=== PATIENT | male | born 1970 | race Two or more races ===

== ENCOUNTER 2019-10-04 04:19 | Inpatient (IN) ==
--- NOTE | 2019-10-04 04:42 | Emergency Department Note ---
History of Present Illness General Chief complaint: Chest Pain Stated complaint: CHEST PAIN History of Present Illness Maximum Pain Intensity: 7 This 49-year-old presents to the ER complaining of chest pain Location: Chest Quality: Pressure Severity: Moderate Duration: 3 AM Timing: Started 3 AM Context: Patient was concerned and called EMS Modifying factors: better with nitroglycerin; worse with nothing Patient does smoke and has high blood pressure. 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 He lives in [place]. Patient denies fever, chills, abdominal pain, dyspnea, radiating pain, diaphoresis, nausea. No leg pain or swelling. No prior heart testing. He is originally from [place]. Allergies Allergy/AdvReac Type Severity Reaction Status Date / Time No Known Allergies Allergy Unverified 10/04/19 06:15 Past Med/Surg History Medical History High blood pressure Surgical History History of weight loss surgery Hx of cholecystectomy Social History Smoking Status: Current every day smoker Hx Alcohol Use: Yes Hx Substance Use: No Communication Ability: Effective Beliefs That Will Affect Care: None Current Living Situation: Alone Feels Safe at Home: Yes Safety Concerns: Feels Safe At This Time Review of Systems A total of 10 systems reviewed and were otherwise negative Physical Exam Vital Signs Vital Signs - 24 hr 10/04/19 04:29 10/04/19 04:35 10/04/19 05:10 Temperature 36.8 C Temperature Source Oral Pulse Rate 72 Pulse Rate [Apical] 70 Pulse Rate from SpO2 Sensor Respiratory Rate 18 18 Blood Pressure 124/95 Blood Pressure [Right Arm] 122/94 Blood Pressure Mean 104 Blood Pressure Mean [Right Arm] 103 Pulse Oximetry 95 96 93 Oxygen Delivery Method Room Air Room Air Room Air Sepsis Recent Fever Within 48 Hours No Sepsis New/Unexplained Change in Mental Status No Sepsis Action Taken by Nursing No Action Required 10/04/19 05:20 Temperature Temperature Source Pulse Rate 70 Pulse Rate [Apical] Pulse Rate from SpO2 Sensor 70 Respiratory Rate 14 Blood Pressure 122/104 H Blood Pressure [Right Arm] Blood Pressure Mean 111 Blood Pressure Mean [Right Arm] Pulse Oximetry 96 Oxygen Delivery Method Sepsis Recent Fever Within 48 Hours Sepsis New/Unexplained Change in Mental Status Sepsis Action Taken by Nursing VITALS: Vitals are noted on the nurse's note and reviewed by myself. Vital signs stable. GENERAL: Pleasant male, in no acute distress, nondiaphoretic, well-developed well-nourished. SKIN: Capillary reflex less than 2 seconds. HEENT: Normocephalic. PERRLA. EOMI. Nares patent. Mucous membranes moist. Neck is supple without nuchal rigidity. HEART: Regular rate and rhythm LUNGS: Clear to auscultation bilaterally without wheezes, rales or rhonchi. No retractions or accessory muscle use. ABDOMEN: Positive bowel sounds x 4. Normal tympanic percussion. Soft, nontender, without masses or organomegaly. Perdomo sign negative. No guarding or rebound tenderness. MUSCULOSKELETAL: No gross musculoskeletal defects. NEURO: Patient was alert and oriented to person place and time. No focal neurological deficits. Course Administered Medications Aspirin (Ecotrin Ectab) 81 mg PO QAM [facility] Stop: 11/03/19 08:59 Last Admin: 10/04/19 08:22 Dose: 81 mg Documented by: [id number] Atorvastatin Calcium (Lipitor) 40 mg PO QAM [facility] Stop: 11/03/19 08:59 Last Admin: 10/04/19 08:22 Dose: 40 mg Documented by: [id number] Fentanyl Citrate (Fentanyl Citrate) 50 mcg IV Q15M PRN PRN Reason: Pain Stop: 10/18/19 04:59 Last Admin: 10/04/19 05:06 Dose: 50 mcg Documented by: [id number] Parenteral Electrolytes (Normosol-R) 1,000 mls @ 120 mls/hr IV .Q8H20M [facility] Stop: 11/03/19 06:27 Last Admin: 10/04/19 16:43 Dose: 120 mls/hr Documented by: [id number] Infusion: 10/04/19 15:39 Dose: 120 mls/hr Documented by: [id number] Admin: 10/04/19 07:19 Dose: 120 mls/hr Documented by: [id number] Insulin Aspart (Novolog Flexpen) 0 units SC ACHS [facility] Stop: 11/03/19 12:29 Last Admin: 10/04/19 20:43 Dose: Not Given Documented by: [id number] Cosigned by: [id number] Admin: 10/04/19 16:51 Dose: Not Given Documented by: [id number] Admin: 10/04/19 13:43 Dose: Not Given Documented by: [id number] Lisinopril (Zestril) 5 mg PO QAM [facility] Stop: 11/03/19 08:59 Last Admin: 10/04/19 08:22 Dose: 5 mg Documented by: [id number] Metoprolol Tartrate (Lopressor) 25 mg PO BID [facility] Stop: 11/03/19 08:59 Last Admin: 10/04/19 20:43 Dose: 25 mg Documented by: [id number] Admin: 10/04/19 08:22 Dose: 25 mg Documented by: [id number] Ticagrelor (Brilinta) 90 mg PO BID [facility] Stop: 11/03/19 20:59 Last Admin: 10/04/19 20:43 Dose: 90 mg Documented by: [id number] Discontinued Medications Bivalirudin (Angiomax ([facility] [employer] Only)) Confirm Administered Dose 250 mg .ROUTE .STK-MED ONE Stop: 10/04/19 05:12 Last Admin: 10/04/19 06:15 Dose: 250 mg Documented by: [id number] Heparin Sodium (Porcine) (Heparin Iv Bolus ([employer] [employer] Use Only)) Confirm Administered Dose 10,000 units .ROUTE .STK-MED ONE Stop: 10/04/19 05:11 Last Admin: 10/04/19 06:15 Dose: Not Given Documented by: [id number] Heparin Sodium (Porcine) (Heparin Sodium (Porcine)) Confirm Administered Dose 5,000 units .ROUTE .STK-MED ONE Stop: 10/04/19 05:24 Last Admin: 10/04/19 05:24 Dose: 5,000 units Documented by: [id number] Cosigned by: [id number] Heparin Sodium/Dextrose () 1 ea IV NOW STA; Protocol Stop: 10/04/19 05:14 Last Admin: 10/04/19 07:21 Dose: Not Given Documented by: [id number] Heparin Sodium/Sodium Chloride (Heparin/Nss 1000 Unit/500ml Flush Bag) Confirm Administered Dose 3,000 units IV .STK-MED ONE Stop: 10/04/19 05:12 Last Admin: 10/04/19 06:15 Dose: 3,000 units Documented by: [id number] Heparin Sodium/Dextrose (Heparin Sodium/Dextrose) 25,000 units in 500 mls @ 0.02 mls/hr IV .Q24H SABI; Protocol Stop: 11/03/19 05:14 Last Admin: 10/04/19 07:21 Dose: Not Given Documented by: [id number] Midazolam HCl (Versed) Confirm Administered Dose 2 mg .ROUTE .STK-MED ONE Stop: 10/04/19 05:12 Last Increment: 10/04/19 06:16 Dose: 1 mg Documented by: [id number] Nicardipine HCl (Cardene) Confirm Administered Dose 25 mg .ROUTE .STK-MED ONE Stop: 10/04/19 05:11 Last Admin: 10/04/19 06:15 Dose: 25 mg Documented by: [id number] Nitroglycerin/Dextrose (Nitroglycerin/D5w 100 Mcg/Ml 20ml Syringe) Confirm Administered Dose 2,000 mcg .ROUTE .STK-MED ONE Stop: 10/04/19 05:12 Last Admin: 10/04/19 06:16 Dose: 2,000 mcg Documented by: [id number] Perflutren Lipid Microsphere (Definity) 1 ml IV ONCE ONE Stop: 10/04/19 08:05 Last Admin: 10/04/19 08:10 Dose: 1 ml Documented by: [id number] Ticagrelor (Brilinta) 180 mg PO ONE ONE Stop: 10/04/19 05:14 Last Admin: 10/04/19 05:24 Dose: 180 mg Documented by: [id number] Medical Decision Making Medical Records Attestation: I reviewed the patient's medical records. Home Medications Current Medication List: was personally reviewed by me Laboratory Data Attestation: I reviewed the patient's lab results. Result diagrams: 10/04/19 04:41 10/04/19 05:18 Lab Results 10/04/19 10/04/19 10/04/19 Range/Units 04:41 04:41 04:41 WBC 9.23 (4.8-10.8) K/uL RBC 5.07 (4.7-6.1) M/uL Hgb 15.5 (14.0-18.0) g/dL POC Hgb (14.0-18.0) g/dl Hct 45.1 (42-52) % POC Hct (42-52) % MCV 89.0 (80-100) fL MCH 30.6 (25-34) pg MCHC 34.4 (32-36) g/dL RDW Std Deviation 42.4 (36.4-46.3) fL RDW Coeff of Abbey 13.1 (11.5-14.5) % Plt Count 218 (130-400) K/uL MPV 10.5 H (7.4-10.4) fL Immature Gran % (Auto) 0.3 % Neut % (Auto) 59.3 % Lymph % (Auto) 30.7 % [place] % (Auto) 8.0 % Eos % (Auto) 1.5 % Baso % (Auto) 0.2 % Neut # (Auto) 5.47 (1.4-6.5) K/uL Lymph # (Auto) 2.83 (1.2-3.4) K/uL [place] # (Auto) 0.74 H (0.11-0.59) K/uL Eos # (Auto) 0.14 (0-0.5) K/uL Baso # (Auto) 0.02 (0-0.2) K/uL Immature Gran # (Auto) 0.03 H (0.00-0.02) K/uL PT Cancelled INR Cancelled APTT Cancelled PTT Ratio Cancelled Activ Coag Time Kaolin (94-140) SECONDS POC D-Dimer (0-450) ng/mlFEU POC Sodium (135-144) mmol/L Sodium 139 (136-145) mmol/L POC Potassium (3.3-5.0) mmol/L Potassium (3.5-5.1) mmol/L POC Chloride (101-112) mmol/L Chloride 110 H (98-107) mmol/L Carbon Dioxide 22 (21-32) mmol/L POC Total CO2 (24-31) mmol/L Anion Gap 7.0 (3-11) POC Anion Gap (16-25) mmol/L POC BUN (7-18) mg/dl BUN 17 (7-18) mg/dl Creatinine 1.16 (0.6-1.4) mg/dl POC Creatinine (0.6-1.3) mg/dl Est Cr Clr Drug Dosing 88.4 ml/min Est GFR ( Amer) 84.0 Est GFR (Non-Af Amer) 72.5 BUN/Creatinine Ratio 15.0 (10-20) Glucose 149 H (70-99) mg/dl POC Glucose (other) (70-99) mg/dl Calcium 8.6 (8.5-10.1) mg/dl POC Ioniz Calcium Radha (1.12-1.32) mmol/l Magnesium (1.8-2.4) mg/dl Total Bilirubin 0.3 (0.2-1) mg/dl AST (15-37) U/L ALT 160 H (12-78) U/L Alkaline Phosphatase 99 (45-117) U/L POC Troponin I (0-0.045) ng/ml Troponin I 0.106 H* (0-0.045) ng/ml Total Protein 7.4 (6.4-8.2) gm/dl Albumin 3.4 (3.4-5.0) gm/dl Globulin 4.0 (2.5-4.0) gm/dl Albumin/Globulin Ratio 0.9 (0.9-2) Triglycerides (0-150) mg/dl Cholesterol (0-200) mg/dl LDL Cholesterol, Calc mg/dl VLDL Cholesterol, Calc mg/dl HDL Cholesterol mg/dl Cholesterol/HDL Ratio Lipase 1777 H (73-393) U/L TSH (0.300-4.500) uIu/ml 10/04/19 10/04/19 10/04/19 Range/Units 04:47 04:48 04:55 WBC (4.8-10.8) K/uL RBC (4.7-6.1) M/uL Hgb (14.0-18.0) g/dL POC Hgb 15.6 (14.0-18.0) g/dl Hct (42-52) % POC Hct 46 (42-52) % MCV (80-100) fL MCH (25-34) pg MCHC (32-36) g/dL RDW Std Deviation (36.4-46.3) fL RDW Coeff of Abbey (11.5-14.5) % Plt Count (130-400) K/uL MPV (7.4-10.4) fL Immature Gran % (Auto) % Neut % (Auto) % Lymph % (Auto) % [place] % (Auto) % Eos % (Auto) % Baso % (Auto) % Neut # (Auto) (1.4-6.5) K/uL Lymph # (Auto) (1.2-3.4) K/uL [place] # (Auto) (0.11-0.59) K/uL Eos # (Auto) (0-0.5) K/uL Baso # (Auto) (0-0.2) K/uL Immature Gran # (Auto) (0.00-0.02) K/uL PT INR APTT PTT Ratio Activ Coag Time Kaolin (94-140) SECONDS POC D-Dimer > 450 H* (0-450) ng/mlFEU POC Sodium 137 (135-144) mmol/L Sodium (136-145) mmol/L POC Potassium 4.4 (3.3-5.0) mmol/L Potassium (3.5-5.1) mmol/L POC Chloride 104 (101-112) mmol/L Chloride (98-107) mmol/L Carbon Dioxide (21-32) mmol/L POC Total CO2 22 L (24-31) mmol/L Anion Gap (3-11) POC Anion Gap 17.0 (16-25) mmol/L POC BUN 23 H (7-18) mg/dl BUN (7-18) mg/dl Creatinine (0.6-1.4) mg/dl POC Creatinine 1.2 (0.6-1.3) mg/dl Est Cr Clr Drug Dosing ml/min Est GFR ( Amer) Est GFR (Non-Af Amer) BUN/Creatinine Ratio (10-20) Glucose (70-99) mg/dl POC Glucose (other) 151 H (70-99) mg/dl Calcium (8.5-10.1) mg/dl POC Ioniz Calcium Radha 1.16 (1.12-1.32) mmol/l Magnesium (1.8-2.4) mg/dl Total Bilirubin (0.2-1) mg/dl AST (15-37) U/L ALT (12-78) U/L Alkaline Phosphatase (45-117) U/L POC Troponin I 0.08 H (0-0.045) ng/ml Troponin I (0-0.045) ng/ml Total Protein (6.4-8.2) gm/dl Albumin (3.4-5.0) gm/dl Globulin (2.5-4.0) gm/dl Albumin/Globulin Ratio (0.9-2) Triglycerides (0-150) mg/dl Cholesterol (0-200) mg/dl LDL Cholesterol, Calc mg/dl VLDL Cholesterol, Calc mg/dl HDL Cholesterol mg/dl Cholesterol/HDL Ratio Lipase (73-393) U/L TSH (0.300-4.500) uIu/ml 10/04/19 10/04/19 10/04/19 Range/Units 05:18 05:18 05:18 WBC (4.8-10.8) K/uL RBC (4.7-6.1) M/uL Hgb (14.0-18.0) g/dL POC Hgb (14.0-18.0) g/dl Hct (42-52) % POC Hct (42-52) % MCV (80-100) fL MCH (25-34) pg MCHC (32-36) g/dL RDW Std Deviation (36.4-46.3) fL RDW Coeff of Abbey (11.5-14.5) % Plt Count (130-400) K/uL MPV (7.4-10.4) fL Immature Gran % (Auto) % Neut % (Auto) % Lymph % (Auto) % [place] % (Auto) % Eos % (Auto) % Baso % (Auto) % Neut # (Auto) (1.4-6.5) K/uL Lymph # (Auto) (1.2-3.4) K/uL [place] # (Auto) (0.11-0.59) K/uL Eos # (Auto) (0-0.5) K/uL Baso # (Auto) (0-0.2) K/uL Immature Gran # (Auto) (0.00-0.02) K/uL PT 10.5 INR 1.0 APTT 26.0 PTT Ratio 0.9 Activ Coag Time Kaolin (94-140) SECONDS POC D-Dimer (0-450) ng/mlFEU POC Sodium (135-144) mmol/L Sodium (136-145) mmol/L POC Potassium (3.3-5.0) mmol/L Potassium 4.0 (3.5-5.1) mmol/L POC Chloride (101-112) mmol/L Chloride (98-107) mmol/L Carbon Dioxide (21-32) mmol/L POC Total CO2 (24-31) mmol/L Anion Gap (3-11) POC Anion Gap (16-25) mmol/L POC BUN (7-18) mg/dl BUN (7-18) mg/dl Creatinine (0.6-1.4) mg/dl POC Creatinine (0.6-1.3) mg/dl Est Cr Clr Drug Dosing ml/min Est GFR ( Amer) Est GFR (Non-Af Amer) BUN/Creatinine Ratio (10-20) Glucose (70-99) mg/dl POC Glucose (other) (70-99) mg/dl Calcium (8.5-10.1) mg/dl POC Ioniz Calcium Radha (1.12-1.32) mmol/l Magnesium 1.9 (1.8-2.4) mg/dl Total Bilirubin (0.2-1) mg/dl AST 80 H (15-37) U/L ALT (12-78) U/L Alkaline Phosphatase (45-117) U/L POC Troponin I (0-0.045) ng/ml Troponin I (0-0.045) ng/ml Total Protein (6.4-8.2) gm/dl Albumin (3.4-5.0) gm/dl Globulin (2.5-4.0) gm/dl Albumin/Globulin Ratio (0.9-2) Triglycerides 142 (0-150) mg/dl Cholesterol 136 (0-200) mg/dl LDL Cholesterol, Calc 66 mg/dl VLDL Cholesterol, Calc 28 mg/dl HDL Cholesterol 42 mg/dl Cholesterol/HDL Ratio 3 Lipase (73-393) U/L TSH 0.640 (0.300-4.500) uIu/ml 10/04/19 Range/Units 06:05 WBC (4.8-10.8) K/uL RBC (4.7-6.1) M/uL Hgb (14.0-18.0) g/dL POC Hgb (14.0-18.0) g/dl Hct (42-52) % POC Hct (42-52) % MCV (80-100) fL MCH (25-34) pg MCHC (32-36) g/dL RDW Std Deviation (36.4-46.3) fL RDW Coeff of Abbey (11.5-14.5) % Plt Count (130-400) K/uL MPV (7.4-10.4) fL Immature Gran % (Auto) % Neut % (Auto) % Lymph % (Auto) % [place] % (Auto) % Eos % (Auto) % Baso % (Auto) % Neut # (Auto) (1.4-6.5) K/uL Lymph # (Auto) (1.2-3.4) K/uL [place] # (Auto) (0.11-0.59) K/uL Eos # (Auto) (0-0.5) K/uL Baso # (Auto) (0-0.2) K/uL Immature Gran # (Auto) (0.00-0.02) K/uL PT INR APTT PTT Ratio Activ Coag Time Kaolin 395 H (94-140) SECONDS POC D-Dimer (0-450) ng/mlFEU POC Sodium (135-144) mmol/L Sodium (136-145) mmol/L POC Potassium (3.3-5.0) mmol/L Potassium (3.5-5.1) mmol/L POC Chloride (101-112) mmol/L Chloride (98-107) mmol/L Carbon Dioxide (21-32) mmol/L POC Total CO2 (24-31) mmol/L Anion Gap (3-11) POC Anion Gap (16-25) mmol/L POC BUN (7-18) mg/dl BUN (7-18) mg/dl Creatinine (0.6-1.4) mg/dl POC Creatinine (0.6-1.3) mg/dl Est Cr Clr Drug Dosing ml/min Est GFR ( Amer) Est GFR (Non-Af Amer) BUN/Creatinine Ratio (10-20) Glucose (70-99) mg/dl POC Glucose (other) (70-99) mg/dl Calcium (8.5-10.1) mg/dl POC Ioniz Calcium Radha (1.12-1.32) mmol/l Magnesium (1.8-2.4) mg/dl Total Bilirubin (0.2-1) mg/dl AST (15-37) U/L ALT (12-78) U/L Alkaline Phosphatase (45-117) U/L POC Troponin I (0-0.045) ng/ml Troponin I (0-0.045) ng/ml Total Protein (6.4-8.2) gm/dl Albumin (3.4-5.0) gm/dl Globulin (2.5-4.0) gm/dl Albumin/Globulin Ratio (0.9-2) Triglycerides (0-150) mg/dl Cholesterol (0-200) mg/dl LDL Cholesterol, Calc mg/dl VLDL Cholesterol, Calc mg/dl HDL Cholesterol mg/dl Cholesterol/HDL Ratio Lipase (73-393) U/L TSH (0.300-4.500) uIu/ml Imaging Data Attestation: I personally reviewed and interpreted this imaging study as follows: Blood Pressure Blood Pressure Findings: Normal blood pressure MDM Narrative Prior records/ancillary studies reviewed. Triage Nursing notes reviewed. Additional history obtained from EMS. The patient's history was concerning for chest pain. Differential diagnosis: Etiologies such as cardiac ischemia, aortic dissection, pulmonary embolism, pneumonia, pneumothorax, musculoskeletal, infections, pericarditis, myocarditis, esophageal rupture, gastrointestinal, as well as others were entertained. Physical examination: As above. ER treatment provided: An order was placed for continuous cardiac monitoring. The monitor shows a rate of 60-100 with a sinus rhythm. Patient is given aspirin nitroglycerin by EMS On reassessment the patient felt better. Diagnostic interpretation by me: #1 the electrocardiogram was ordered for chest pain EKG: Normal sinus, normal intervals, no acute ST-T wave changes, impression normal sinus rhythm started by myself I think arrhythmia is unlikely. EKG shows normal sinus rhythm with no interval abnormalities such as QT prolongation or WPW. There are no findings to suggest Brugada syndrome. Cardiac monitoring in the emergency department reveals no tachycardic or bradycardic dysrhythmia. Hypertrophic cardiomyopathy was considered but there are no clear historical elements pointing toward this. EKG is not suggestive. The QRS voltage is not extremely large and there are no suggestive Q waves. EKG #2: EKG was ordered for persistent chest pain EKG: Normal sinus, normal intervals, ST elevation in the anteroseptal leads impression acute ST elevation IN in the anteroseptal leads interpreted by myself ; heart alert was immediately initiated I think arrhythmia is unlikely. There are no findings to suggest Brugada syndrome. Cardiac monitoring in the emergency department reveals no tachycardic or bradycardic dysrhythmia. Hypertrophic cardiomyopathy was considered but there are no clear historical elements pointing toward this. EKG is not suggestive. The QRS voltage is not extremely large. The labs revealed elevated troponin Imaging studies: Chest x-ray with no acute consolidation, pneumothorax or free air per my interpretation HEART SCORE: Hx: high/mod/low suspicion: 2 ECG: ST depression/nonspecific changes/normal: 0 Age: Greater than 65/45-64/less than 45: 1 Risk factors: (Hypertension, hyperlipidemia, diabetes, coronary disease, tobacco use, cocaine use): 2 Troponin: Greater than 2 times normal limits/1-2 times normal limits/normal: 1 Total: 6 Consultation: A consultation was placed with cardiology, Dr. Augustin and the hospitalist. The case was discussed and diagnostics were reviewed. The patient was evaluated in the ER for further treatment. Patient was taken to the cardiac [facility] and admitted tube medicine. Exam and history seem consistent with acute IN. Serial EKGs showed ST elevation in anteroseptal leads. Heart alert was initiated. Patient was ready given aspirin and nitroglycerin. He was given Brilinta and heparin per the request of cardiology. Patient does not want me to contact his currently. He is agreeable treatment plan of admission. He will be admitted to the medicine service. He was taken to the [facility]. Patient was reassessed multiple times. He remained stable. His pain was improving with the medications as above. By the evaluation outlined above emergent etiologies such as aortic dissection, pulmonary embolism, pneumonia, pneumothorax, infections, pericarditis, myocarditis, gastrointestinal, as well as others were deemed relatively unlikely. The pt informed about the findings as listed above. All questions were answered and pleased with the treatment. The chart was completed utilizing [employer] voice recognition software. Grammatical errors, random word insertions, pronoun errors, and incomplete se ntences are an occassional consequence of this system due to software limitations, ambient noise, and hardware issues. Any formal questions or concerns about the content, text, or information contained within the body of this dictation should be directly addressed to the physician accounts payable assistant for cla rification. Impression & Plan ST elevation myocardial infarction (STEMI) Critical Care Time Critical Care Time: Yes Total Critical Care Time: 35 I have personally spent 35 minutes of critical care time in the direct management of this patient. This includes bedside care, interpretation of diagnostic studies, and testing, discussion with consultants, patient, and family members, and other required patient management activities. This 35 minutes is in excess of all separately billable procedures. Discharge Plan Visit Data *Final* Discharge Date/Time: 10/04/19 05:26 Chief Complaint: Chest Pain Stated Complaint: CHEST PAIN ED Provider: Marce Espinoza ED Midlevel Provider: Agata Souza Discharge Problem: ST elevation myocardial infarction (STEMI) Patient Disposition: Still a Patient Condition: Good Discharge Instructions Interventions: ED Discharge Assessment Last Done: 10/04/19 05:26
[2019-10-04 04:49] LABS: Basophils # (auto) 0.02 K/uL (0-0.2); Basophils % (auto) 0.2 %; Eosinophils # (auto) 0.14 K/uL (0-0.5); Eosinophils % (auto) 1.5 %; Hematocrit (blood only) 45.1 % (42-52); Hemoglobin 15.5 g/dL (14.0-18.0); Immature Granulocytes # (auto) 0.03 K/uL (0.00-0.02); Immature Granulocytes % (auto) 0.3 %; Lymphocytes # (auto) 2.83 K/uL (1.2-3.4); Lymphocytes % (auto) 30.7 %; Mean Corpuscular Hemoglobin 30.6 pg (25-34); Mean Corpuscular Hgb Conc 34.4 g/dL (32-36); Mean Platelet Volume 10.5 fL (7.4-10.4); Monocytes # (auto) 0.74 K/uL (0.11-0.59); Neutrophils # (auto) 5.47 K/uL (1.4-6.5); Neutrophils % (auto) 59.3 %; Platelet Count 218 K/uL (130-400); RDW Coefficient of Variation 13.1 % (11.5-14.5); RDW Standard Deviation 42.4 fL (36.4-46.3); Red Blood Count 5.07 M/uL (4.7-6.1); White Blood Count 9.23 K/uL (4.8-10.8)
[2019-10-04] MEDS ORDERED: fentaNYL citrate 100 MCG/2 ML VIAL IV PRN (05:00)
[2019-10-04 05:06] LABS: iSTAT Creatinine 1.2 mg/dl (0.6-1.3); iSTAT Hemoglobin 15.6 g/dl (14.0-18.0); iSTAT Ionized Calcium 1.16 mmol/l (1.12-1.32); iSTAT Potassium 4.4 mmol/L (3.3-5.0)
[2019-10-04] MEDS ORDERED: NiCARDipine HCL INJ 2.5 MG/ML 10 ML AMP ONE (05:10)
[2019-10-04] MEDS ORDERED: HEPARIN (PORCINE) 1000 UNIT/ML 10 ML (CATH LAB USE ONLY) ONE (05:10)
[2019-10-04] MEDS ORDERED: NITROGLYCERIN/D5W 100MCG/ML 20ML SYR ONE (05:11)
[2019-10-04] MEDS ORDERED: MIDAZOLAM HCL 1 MG/ML 2ML VIAL ONE (05:11)
[2019-10-04] MEDS ORDERED: BIVALIRUDIN 250 MG VIAL (CATH LAB ONLY) ONE (05:11)
[2019-10-04] MEDS ORDERED: TICAGRELOR 90 MG TAB PO ONE (05:13)
[2019-10-04 05:14] LABS: Albumin Globulin Ratio 0.9 (0.9-2); Albumin Level 3.4 gm/dl (3.4-5.0); Bilirubin,Total 0.3 mg/dl (0.2-1); Calcium 8.6 mg/dl (8.5-10.1); Creatinine Clr Calc Pharmacy 88.4 ml/min; Est GFR (Non-African American) 72.5; Total Protein 7.4 gm/dl (6.4-8.2); Troponin I 0.106 ng/ml (0-0.045)
[2019-10-04] MEDS ORDERED: HEPARIN SODIUM/DEXTROSE 25,000 UNITS/500 ML BAG IV SCH (05:15)
[2019-10-04] MEDS ORDERED: HEPARIN SOD 5,000 UNIT/0.5 ML VIAL ONE (05:23)
--- NOTE | 2019-10-04 05:25 | History & Physical Report ---
Date of Service October 04, 2019 Assessment & Plan (1) Chest pain: Armando Salazar is a 49-year-old male with a past medical history of tobacco abuse and hypertension who presented with sudden onset of left-sided chest pain and who was admitted for ACS Chest pain 2/2 STEMI EKG with anteroseptal J-point elevation, ST elevation with minimal reciprocal changes First troponin elevated at 0.106 7/10 chest pain persists slightly improved following aspirin, fentanyl, nitrates Patient received aspirin, nitro, and fentanyl Per interventional cardiology patient was given heparin bolus with drip and Brilinta. 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 Defer CT-PE. 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 Denies withdrawal sx in past -CTabdomen/pelvis pending - BMP daily HTN - Pt on metoprolol unknown dose, pt poor historian - DIRECTOR OF OCCUPATIONAL HEALTH clonidine 0.3mg/day held pending cath - MTP tartrate 25mg BID, may convert to succinate on d/c FEN/GI: N.p.o. pending cath CODE STATUS: Full code Disposition: ICU per interventional (2) History of weight loss surgery: History of Present Illness Chief Complaint: Chest Pain Primary Care Provider: NO PCP Michel is a 49-year-old male with a past medical history of hypertension who presented after developing acute which awoke him from sleep 810/10 left-sided chest pain and J-point changes concerning for acute MS causing him to call 911 for transport to the emergency department. On arrival he was found to have ST elevations with J-point elevation concerning for acute MS. 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 He did not have shortness of breath or diaphoresis. He denies abdominal pain, nausea, vomiting, fever, chills, cough, shortness of breath, and difficulty breathing. His pain was slightly improved following aspirin/nitro/fentanyl and is 7/10 at time of evaluation pending catheterization. Patient is a poor historian of medications, reports he is on metoprolol but is not sure the dose and clonidine patch. He is a daily 1 pack/day tobacco user, endorses regular alcohol intake "I am [place] ", no recreational drug use. No history of withdrawal. Medical history: Hypertension Surgical history: Cholecystectomy 1 month ago, history of weight loss surgery Allergies: No medication allergies Medications: Metoprolol of unclear dose, clonidine 0.3 mg/day patch Social: Tobacco, alcohol as above. 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 CODE STATUS: Full code Allergies Allergy/AdvReac Type Severity Reaction Status Date / Time No Known Allergies Allergy Unverified 10/04/19 06:15 Past Med/Surg History Medical History High blood pressure Surgical History History of weight loss surgery Hx of cholecystectomy Social History Smoking Status: Current every day smoker Hx Alcohol Use: Yes Hx Substance Use: No Communication Ability: Effective Beliefs That Will Affect Care: None Current Living Situation: Alone Feels Safe at Home: Yes Safety Concerns: Feels Safe At This Time Review of Systems Review of Systems: 10 point review of systems negative except as noted in HPI. Physical Exam Physical Exam: General: A&Ox3. NAD. Cooperative. Answers questions appropriately. HEENT: Atraumatic, normocephalic. Pulls equal and reactive to light and accommodation. Visual acuity grossly intact. Pulm: CTAB A&P. -wheezes, -rales, -rhonchi. Symmetrical chest rise. No increase work of breathing. No respiratory distress. Cardiac: RRR, -mrg. Radial pulses intact and symmetrical. Abdominal: Nontender, nondistended, soft. BS present. Extremities: Warm, dry. PT pulses intact bilaterally. No pedal edema. Results & Data Results & Data ([facility]) Vital Signs (Past 12 Hours) Vital Signs Temp Pulse Pulse Resp BP BP Pulse Ox 10/04/19 05:10 70 18 122/94 93 10/04/19 04:35 96 10/04/19 04:29 36.8 C 72 18 124/95 95 Critical Care Time Critical Care Time: Yes Total Critical Care Time: 40 Supervising Physician Co-Signing Physician Notes Attending addendum: I have physically seen this patient, have supervised the medical residents activities, and agree with the H&P unless as otherwise noted. Assessment and Plan: STEMI/heart alert/emergent cardiac cath with placement of KWAME to mid LAD- Admitted to ICU Interventional cardiology orders: Brilinta, atorvastatin, aspirin, metoprolol tartrate. Holding clonidine, monitor for rebound Consulting cardiology. 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 Elevated d-dimer- Likely secondary to coronary thrombosis. Pancreatitis- Lipase 1777 upon admission, ALT 160, AST 80. Admits to at least weekly alcohol use. Order CT abdomen pelvis without contrast. Follow serial BMP magnesium and lipase levels remaining orders and notations as noted. Resident Activity Tracking Resident Involvement: Resident Care Provided Care Provided: Adult Hospital Medicine
--- NOTE | 2019-10-04 05:32 | Pre Anesthesia Assessment ---
Date of Service October 04, 2019 Pre Sedation Assessment Vital Signs Temp Pulse Pulse Resp BP BP Pulse Ox 10/04/19 05:10 70 18 122/94 93 10/04/19 04:35 96 10/04/19 04:29 36.8 C 72 18 124/95 95 Cardiovascular RRR, no murmur, no edema Respiratory normal respiratory effort, lungs clear to auscultation Pre-Sedation Airway Assessment Smoking Status: Current every day smoker Hx Sleep Apnea: No Hx Difficult Intubation: No Short, Thick Neck: No Mallampati Class: II ASA: ASA2 Procedure Planning Contraindications for Sedation: none Current Medications Reviewed: Yes Notes The planned sedation has been discussed with the patient. Informed Consent was obtained. I have identified the patient, determined the appropriateness of sedation and have assessed the patient immediately prior to the procedure. All medicine(s) and interventions are by my order.
[2019-10-04 05:47] LABS: Partial Thromboplastin Ratio 0.9; Prothrombin Time 10.5 Seconds (9.0-12.0)
[2019-10-04 05:51] LABS: Magnesium 1.9 mg/dl (1.8-2.4); Thyroid Stimulating Hormone 0.64 uIu/ml (0.300-4.500)
--- NOTE | 2019-10-04 06:09 | Post Operative Brief Note ---
Cardiology Brief Post Op Date of Surgery October 04, 2019 Pre & Post Diagnosis Operation Date: 10/04/19 05:00 49-year-old old gentleman, woke up from his sleep with sudden onset of left- sided chest discomfort. Initial EKG in emergency room revealed evidence of anterior ST elevation myocardial infarction. Emergency percutaneous intervention performed to mid left anterior descending artery with placement of 3.5 mm x 26 mm Donny drug-eluting stent, confucianism of normal GRETCHEN-3 flow with excellent angiographic results. Procedure Percutaneous intervention of mid left anterior descending artery with placement of 3 mm x 26 mm Donny drug-eluting stent. Steam Plant Records Clerk Jasvir Augustin MD Bakery Products Checker none Estimated Blood Loss 10 Findings Consistent with Post-Op Diagnosis
--- NOTE | 2019-10-04 06:10 | XRay Report ---
XR chest 1V portable CLINICAL HISTORY: Chest Pain dyspnea COMPARISON STUDY: No previous studies for comparison. FINDINGS: Mild cardiomegaly. Prominent pulmonary vasculature. Potential basilar infiltrative change. IMPRESSION: 1. Pulmonary vascular congestion. Potential interstitial infiltrative change of both lung bases. ACT 112: Negative or not required by law. The above report was generated using voice recognition software. It may contain grammatical, syntax or spelling errors. Electronically signed by: Ashkan Moreno M.D. 10/04/2019 6:09 AM
--- NOTE | 2019-10-04 06:11 | Cardiac Catheterization ---
ACC Data: Manager Business Information Cardiac Status Clinical evaluation leading to the procedure CAD Presenation: STEMI Diagnostic Physicians Name: Jasvir Augustin MD Closure Device Recommendations: PCI without planned CABG Cardiac Cath Procedure Full Procedure Date October 04, 2019 Pre-Procedure Diagnosis Pre-Procedure Diagnosis: STEMI AUC Score AUC Score: 9 Post-Procedure Diagnosis Post-Procedure Diagnosis: Severe CAD and Successful PCI Procedure(s) Performed Procedure(s) Performed: Coronary Angiography and Drug Eluting Stent Physicist [place] Jasvir Augustin MD Estimated Blood Loss Estimated Blood Loss: 10 Summary of Findings 49-year-old gentleman, presented to emergency room with sudden onset of left- sided chest discomfort. Initial EKG in the emergency room revealed evidence of anterior ST elevation myocardial injury, emergency percutaneous intervention was performed with placement of 3.5 mm x 26 mm Donny drug-eluting stent, postdilated with 3.5 mm NC balloon at nominal pressures. Pentecostal of GRETCHEN-3 flow, excellent angiographic results with resolution of symptoms and EKG changes. Hemodynamics Rest Ao:: 124/86 Final Ao: 116/72 LV: not performed Recommendations Recommendations: PCI without planned CABG Radiation Exposure (mGy) 2624 Contrast (mls) 180 I attest to the content of the Intraoperative Record and any orders documented therein. Any exceptions are noted below. PG Care Time/CCT Total # of Minutes Spent Total Time Spent with Patient: Total time spent is greater than 50% in coordination of care (as documented) at patient's floor/unit and/or counseling patient:
--- NOTE | 2019-10-04 06:12 | History & Physical Report ---
Date of Service October 04, 2019 History of Present Illness Primary Care Provider: NO PCP Past Med/Surg History Medical History High blood pressure Surgical History History of weight loss surgery Hx of cholecystectomy Social History Smoking Status: Current every day smoker Feels Safe at Home: Yes Physical Exam ENMT: Mallampati Class: II Respiratory: normal respiratory effort, lungs clear to auscultation Cardiovascular: RRR, no murmur, no edema Results & Data Results & Data ([facility]) Vital Signs (Past 12 Hours) Vital Signs Temp Pulse Pulse Resp BP BP Pulse Ox 10/04/19 05:10 70 18 122/94 93 10/04/19 04:35 96 10/04/19 04:29 36.8 C 72 18 124/95 95 PG Care Time/CCT Total # of Minutes Spent Total Time Spent with Patient: Total time spent is greater than 50% in coordination of care (as documented) at patient's floor/unit and/or counseling patient: Coding
--- NOTE | 2019-10-04 06:14 | Post Anesthesia Assessment ---
Date of Service October 04, 2019 Post Sedation Assessment Vital Signs Temp Pulse Pulse Resp BP BP Pulse Ox 10/04/19 05:10 70 18 122/94 93 10/04/19 04:35 96 10/04/19 04:29 36.8 C 72 18 124/95 95 Discharge Sedation Level of Care: Phase I Post Sedation Plan On clinical assessment, the patient appears to have tolerated the sedation without complications. Patient is recovering as anticipated. Patient will continue to be monitored by nursing and may be discharged when sedation discharge criteria are met per below protocol. Upon Completions of procedure up to 15 minutes continue every 5 minute vital signs and the P.A.R. score; then discharge to a Phase I or Fast Track to Phase II per the following guidelines: * Discharge Patient to appropriate Phase II area if PAR is 8 or greater or return to pre- procedure baseline. The post - procedure orders will be as directed. * If PAR score is less than 8 or not return to pre-procedure baseline then patient will follow Phase I monitoring till PAR is reached for Phase II. The Phase I may be done in procedure room or may call to secure a Phase I area. * If naloxone or flumazenil are used for reversal, hold in Phase I for continued monitoring from when last reversal dose was given for a minimum of 60 minutes or longer pending the nurse and/or physician discretion of patient condition before discharge to Phase II. Please call the Sedation Physician to re-evaluate and complete post-note for discharge to Phase II area. Do NOT discharge from procedure sedation or Phase 1 until post- sedation evaluation note is complete by procedure /sedation MD Sedation Discharge Instructions to be given to the patient at discharge to home.
[2019-10-04] MEDS ORDERED: NITROGLYCERIN SL 0.4 MG/TAB TAB SL PRN (06:15)
[2019-10-04] MEDS ORDERED: ONDANSETRON INJ 2 MG/ML 2 ML VIAL IV PRN (06:15)
[2019-10-04] MEDS ORDERED: ACETAMINOPHEN 325 MG TAB PO PRN (06:15)
--- NOTE | 2019-10-04 06:24 | Emergency Department Note ---
ED Visit Note I received a call for medic command on this patient. Patient was complaining of left-sided chest pain with EKG changes noted by EMS. They were 7 minutes out of the hospital. Upon arrival the patient's EKG seems to be somewhat similar initially to the prehospital EKG with J-point elevation in the anterior leads. 10 minutes later a second departmental EKG was performed and reveals more severity. Patient did receive aspirin prior to arrival. He got several doses of sublingual nitro. He complains of 7/10 pain. IV fentanyl was ordered. A h eart alert was called and Dr. GONZALEZ arrived in the emergency department to evaluate the patient. Patient's laboratory work reveals a mildly elevated troponin at 0.1. A d-dimer was inadvertently performed by nursing staff but is noted to be greater than 450. At this time the patient was taken to the catheterization lab for further management. The hospitalist was notified. .
[2019-10-04] MEDS ORDERED: ICU PROTOCOL FOR HYPERGLYCEMIA PRN (06:28)
--- NOTE | 2019-10-04 06:32 | Critical Care Consultation ---
Date of Consultation October 04, 2019 Assessment & Plan (1) STEMI (ST elevation myocardial infarction): Reason Critically Ill: 49 yo M here with a PMHx significant for HTN and smoking abuse who presented with chest pain and who was taken for urgent catheterization for ST elevations on EKG. Admitted to ICU for close monitoring following catheterization and stent placement. Neuro - CAM ICU: NEGATIVE Sedation: none Analgesia: none Cardiac - STEMI and Elevated D-Dimer: -On arrival with crushing chest pain. -EKG showed ST elevations in anterior and septal leads, and troponin elevated to 0.106. -Heart Alert called, urgent catheterization performed by Dr. Augustin which showed 100% stenosis of the LAD. Drug-eluting stent placed to the mid-LAD. - D-dimer on arrival elevated to >450. - Likely due to acute STEMI. - With oxygen saturation of 90-93% on RA prior to stent, now 96-99%. 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 - calf size symmetrical, with rapid improvement in oxygenation s/p catheterization. - CTPE deferred given asymptomatic. - Will need management of risk factors, including blood pressure, cholesterol, BSG, smoking. - Lipid panel and Hgb A1c ordered. - Aspirin 324 given en route to ER. Continue aspirin 81mg daily. - Brillinta 90mg BID. - Metoprolol tartrate 25mg BID. - Lisinopril 5mg daily. - Cardiology consulted and appreciate recommendations. Respiratory - - Without respiratory complaints. - CXR performed which showed pulmonary vascular congestion, and potential interstitial infiltrative change of both lung bases. - Continuous oxygen monitoring, goal O2 saturation >92%. - Saturating well on room air and without respiratory complaints. Smoking Hx: - Has 25 pack year history of smoking. - Does not desire nicotine patch at this time. - Encourage smoking cessation to minimize heart disease risk. GI - - Heart Healthy diet starting with breakfast. Elevated ALT/lipase: - On arrival with elevated lipase to 1777. - Without complaints of abdominal pain, nausea, vomiting suggestive of pancreatitis. - Possible etiologies of elevated lipase include alcohol abuse, CBD stone, triglyceridemia, infection, malignancy. - s/p cholecystectomy 1 month ago. - CTAP without contrast ordered and pending. - lipid panel ordered. - Will monitor for signs of alcohol withdrawal. Hx alcohol use: - Patient endorses intermittent alcohol consumption, once weekly and will have 5 shots at that time. - He states "of course I drink, I am Malagasy". - No outward signs of withdrawal. - At low risk of withdrawal, monitor closely and initiate AWSS protocol if begins to exhibit signs of withdrawal. RENAL/LYTES - - No significant electrolyte derangement. - Given cardiac pathology replete electrolytes as needed to maintain K >4, Mg >2. Elevated Creatinine: - With a baseline normal creatinine. - With some mild elevation this AM to 1.17; this is prior to cardiac catheterization. - CTAP to be performed without contrast for renal protection. - Monitor closely for renal injury with UO and labwork. - Encourage PO hydration. - - No concerns at this time. - Monitor strict Is/Os. ENDO - Patient without history of thyroid disease or DM2. - BSG on BMP 149. - Workup while hospitalized to include Hgb A1c which is ordered. - ICU hyperglycemia protocol. HEME - - Stable H&H. - CBC daily. ID - - CBC without leukocytosis, no fever on arrival and no reports of fever. - No concern for infection at this time, continue to monitor. INTEGUMENTARY - - No current integumentary concerns. LINES/IV ACCESS - - PIVs intact. DVT PROPHYLAXIS - - Heparin 5000u SQ q12h. CODE STATUS FULL CODE Thank you for allowing us to be part of this patient's care. Please refer to Dr. Mckeon's documentation for any further recommendations. (2) High blood pressure: (3) Hyperglycemia: (4) Elevated lipase: (5) Chronic alcohol use: Supervising Physician Co-Signing Physician Notes Dr. Hunt was resident physician during care of patient. I separately evaluated patient for [place] portions of the history and the exam. I was present during the critical portion of medical decision making, and I discussed the case with the resident. I generally agree with the findings and plan. Patient desiring to be discharged hopeful to be discharged soon. Chest pain- free currently. Discussed the case with Dr. Stark, ICU observation downgrade likely tomorrow. History of Present Illness Reason for Consultation: Monitoring s/p PCI Requesting Physician: Dr. Bimal Carrillo Attending Physician: Dr. Charli Orosco History of Present Illness 49 yo M PMHx smoking abuse, HTN presented to ED for chest pain. Noted as 8/10, which awoke him from sleep, without associated SOB, radiation to arm or jaw, or associated N/V/abdominal pain, diaphoresis. En route to ED patietn received several doses of nitro sublingual with mild improvement, as well as aspirin 324mg. In ED was noted on EKG to have J-point elevation in the anterior/septal leads concerning for acute STEMI, with troponin elevated to 0.106. Fentanyl was ordered for patient's pain, and heart alert was called. Patient was taken immediately to laboratory apparatus glass grinder for urgent catheterization by Dr. Augustin. There he was found to have 100% stenosis of his LAD and drug-eluting stent x1 was placed to the mid-LAD. Following procedure he was brought to ICU for monitoring after PCI. Of note, in ED was also noted to have lipase of 1777 and creatinine 1.17. On my interview patient is now chest pain free, without other symptoms such as SOB, nausea or vomiting, constipation or diarrhea, fevers or chills, palpitations, abdominal pain. Does report that he drinks intermittently 5 shots at a time but only once every week to every other week. Endorses 25 year smoking history. No illicit substance use. Endorses cholecystectomy 1 month ago for gallstones. Allergies Allergy/AdvReac Type Severity Reaction Status Date / Time No Known Allergies Allergy Unverified 10/04/19 06:15 Patient History Medical History High blood pressure Surgical History History of weight loss surgery Hx of cholecystectomy Social History Smoking Status: Current every day smoker Hx Alcohol Use: Yes Hx Substance Use: No Communication Ability: Effective Beliefs That Will Affect Care: None Current Living Situation: Alone Feels Safe at Home: Yes Safety Concerns: Feels Safe At This Time Review of Systems Review of Systems: All systems reviewed & are unremarkable except as noted in HPI & below Constitutional: no fever, no chills and no malaise Respiratory: no cough and no dyspnea Cardiovascular: no chest pain, no palpitations and no edema Gastrointestinal: no abdominal pain, no constipation and no diarrhea/loose stools Physical Exam Constitutional: WD/WN, vitals as above Eyes: PERRL, conjunctivae normal, anicteric sclerae ENMT: external ear and nose normal, oropharynx normal Neck: normal visual inspection Respiratory: normal respiratory effort, lungs clear to auscultation Cardiovascular: RRR, no murmur, no edema Gastrointestinal (Abdomen): normal bowel sounds, soft, nontender, no hepatosplenomegaly Musculoskeletal: no cyanosis or clubbing, extremities motor strength 5/5 Skin: no rashes, warm and dry Neurologic: AAOx3, normal speech. PERRLA, EOMI, no nystagmus. Normal visual acuity bilaterally. Bilateral UE, LE, and face without sensory or motor deficits. DTRs normal. II- XII intact bilaterally. No tremor. No ataxia. Psychiatric: A+Ox3, euthymic affect Results & Data Results & Data ([facility]) Vital Signs (Past 12 Hours) Vital Signs Temp Pulse Pulse Resp BP BP Pulse Ox 10/04/19 06:24 72 16 109/78 96 10/04/19 05:10 70 18 122/94 93 10/04/19 04:35 96 10/04/19 04:29 36.8 C 72 18 124/95 95 Resident Activity Tracking Resident Involvement: Resident Care Provided Care Provided: Adult Hospital Medicine (1) STEMI (ST elevation myocardial infarction) Involved coronary artery: LAD coronary artery Qualified Code(s): I21.02 - ST elevation (STEMI) myocardial infarction involving left anterior descending coronary artery
[2019-10-04 07:07] LABS: Chol HDL Ratio 3; Cholesterol 136 mg/dl (0-200); HDL Cholesterol 42 mg/dl; LDL Cholesterol Calculated 66 mg/dl; Triglycerides 142 mg/dl (0-150); VLDL Cholesterol 28 mg/dl
[2019-10-04] MEDS: NORMOSOL-R 1,000 ML IV SCH ×2 (07:19→16:43)
[2019-10-04] MEDS ORDERED: PERFLUTREN LIPID MICROSPHERE (DEFINITY) IV ONE (08:04)
[2019-10-04] MEDS: METOPROLOL TARTRATE 25 MG TAB PO SCH ×2 (08:22→20:43)
[2019-10-04] MEDS: ATORVASTATIN 40 MG TAB PO SCH (08:22)
[2019-10-04] MEDS: lisinopriL 5 MG TAB PO SCH (08:22)
[2019-10-04] MEDS: ASPIRIN 81 MG ECTAB PO SCH (08:22)
--- NOTE | 2019-10-04 10:48 | CT Scan Report ---
CT abd pelvis wo con CT DOSE: 759.28 mGy.cm HISTORY: Pain. FINDINGS: Basilar atelectasis. Liver appears uniform. Prior cholecystectomy. Pancreas is unremarkable. Contrast within the kidneys from prior contrast study. Hyperplastic changes adrenal glands bilaterall y. Postoperative changes involving the stomach. Bowel pattern is considered nonobstructive. Bladder is m idline. There is no free fluid within the pelvic cul-de-sac. elevated lipase with EtoH . IMPRESSION: No significant abnormality identified within the abdomen or pelvis. Prior cholecystectomy. Hypertroph ic changes adrenal glands. ACT 112: Negative or not required by law. The above report was generated using voice recognition software. It may contain grammatical, syntax or spelling errors. Electronically signed by: Ashkan Moreno M.D. 10/04/2019 10:47 AM
--- NOTE | 2019-10-04 10:51 | XCELERA ---
[id number]
--- NOTE | 2019-10-04 11:03 | Electrocardiogram Report ---
Test Reason : Blood Pressure : / mmHG Vent. Rate : 064 BPM Atrial Rate : 064 BPM P-R Int : 172 ms QRS Dur : 092 ms QT Int : 414 ms P-R-T Axes : 050 -18 041 degrees QTc Int : 427 ms Poor data quality, interpretation may be adversely affected Normal sinus rhythm Anteroseptal infarct (cited on or before 04-OCT-2019) ACUTE IA / STEMI Abnormal ECG When compared with ECG of 04-OCT-2019 04:44, (unconfirmed) No significant change was found Confirmed by Jesus Hernandez ([id number]) on 10/04/2019 11:03:41 AM Referred By: REFERRED SELF Confirmed By:Jorje Hernandez
--- NOTE | 2019-10-04 11:03 | Electrocardiogram Report ---
Test Reason : Blood Pressure : / mmHG Vent. Rate : 073 BPM Atrial Rate : 073 BPM P-R Int : 166 ms QRS Dur : 102 ms QT Int : 408 ms P-R-T Axes : 052 -12 057 degrees QTc Int : 449 ms Normal sinus rhythm Anteroseptal infarct , possibly acute ACUTE CO / STEMI Abnormal ECG No previous ECGs available Confirmed by Jesus Hernandez ([id number]) on 10/04/2019 11:03:29 AM Referred By: REFERRED SELF Confirmed By:Jorje Hernandez
--- NOTE | 2019-10-04 11:03 | Electrocardiogram Report ---
Test Reason : Blood Pressure : / mmHG Vent. Rate : 066 BPM Atrial Rate : 066 BPM P-R Int : 178 ms QRS Dur : 100 ms QT Int : 412 ms P-R-T Axes : 053 -21 045 degrees QTc Int : 431 ms Normal sinus rhythm Anteroseptal infarct , possibly acute ACUTE DC / STEMI Abnormal ECG No previous ECGs available Confirmed by Jesus Hernandez ([id number]) on 10/04/2019 11:03:36 AM Referred By: REFERRED SELF Confirmed By:Jorje Hernandez
--- NOTE | 2019-10-04 11:04 | Electrocardiogram Report ---
Test Reason : Blood Pressure : / mmHG Vent. Rate : 072 BPM Atrial Rate : 072 BPM P-R Int : 170 ms QRS Dur : 102 ms QT Int : 408 ms P-R-T Axes : 035 -10 094 degrees QTc Int : 446 ms Normal sinus rhythm Anteroseptal infarct (cited on or before 04-OCT-2019) Abnormal ECG When compared with ECG of 04-OCT-2019 05:06, (unconfirmed) Evolutionary changes of anterior CT Confirmed by Jesus Hernandez ([id number]) on 10/04/2019 11:04:12 AM Referred By: REFERRED SELF Confirmed By:Jorje Hernandez
--- NOTE | 2019-10-04 11:50 | Billing Data ---
Date of Service October 04, 2019 Coding Level of Care Code 93004 Inpt Consult Level 5
--- NOTE | 2019-10-04 11:54 | Cardiology Consultation ---
Date of Consultation October 04, 2019 Assessment & Plan (1) STEMI (ST elevation myocardial infarction): presentation consistent with occlusion of left anterior descending artery. Patient underwent successful percutaneous intervention without complication. No access site complications. Currently resting comfortably without recurrent symptoms. No evidence of congestive heart failure or mechanical complication currently. No arrhythmias. The patient was started on dual anti-platelet therapy, beta-blockade and Domingo inhibition. We will monitor his hemodynamics and symptoms over the next couple of days. Continue telemetry. The patient lives outside of our area but will need to follow up both with the yeast maker and cardiac rehab after return to home. He will also require risk factor modification to include discontinuation of tobacco, aggressive anti-lipid therapy and reduction in alcohol consumption (2) High blood pressure: he has a history of hypertension for which she uses transdermal clonidine. Patch was removed this morning. I do not believe he will require any supplementation but we will monitor him for rebound hypertension. (3) Elevated lipase: Possibly related to alcohol use. Monitor for abdominal pain or symptoms of pancreatitis. History of Present Illness Reason for Consultation: STEMI Requesting Physician: Donya Attending Physician: Cliff Orosco MD History of Present Illness the patient is a 49-year-old gentleman without a known history of cardiac disease who was traveling through the area on business. 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 Based on the nature of the symptoms he contacted EMS and was transported to the emergency room where he was discovered to have acute EKG abnormalities consistent with an anterior myocardial infarction. The patient was taken emergently to the catheterization suite where he was discovered to have occlusion of the left anterior descending artery. He underwent successful percutaneous intervention with resolution of his symptoms. The patient is currently resting comfortably. He is tired after an extended and eventful evening. He denies any recurrent symptoms of chest discomfort. No symptoms of dyspnea. No pain at the radial access site. No paresthesias involving the right arm or hand. Allergies Allergy/AdvReac Type Severity Reaction Status Date / Time No Known Allergies Allergy Unverified 10/04/19 06:15 Patient History Medical History High blood pressure Surgical History History of weight loss surgery Hx of cholecystectomy Social History Smoking Status: Current every day smoker Hx Alcohol Use: Yes Hx Substance Use: No Communication Ability: Effective Beliefs That Will Affect Care: None Current Living Situation: Alone Feels Safe at Home: Yes Safety Concerns: Feels Safe At This Time Review of Systems Review of Systems: All systems reviewed & are unremarkable except as noted in HPI & below Physical Exam Physical Exam: The patient is alert and oriented. Mood and affect appeared normal. He answered all questions appropriately. HEENT: Pupils are equal and reactive to light and accommodation. Extraocular movements are intact. The sclerae are anicteric. Neuro: Cranial nerves intact Neck: Patient's neck is supple. He has palpable carotid pulses bilaterally without bruits on auscultation. There is no evidence of jugular venous distention. The thyroid is not enlarged. Lungs: Clear to auscultation bilaterally. He has good air movement without use of accessory muscles. No rales wheezes or rhonchi. Cardiac: Heart demonstrates a regular rate and rhythm. Normal S1 and S2. No murmurs on examination. Pulses: Faint right radial pulse but good perfusion of the right hand. No significant ecchymosis noted the access site. Palpable left radial pulse. Extremities: There was no evidence of hypoperfusion. There is no cyanosis or clubbing. There is no edema. Skin: I did not appreciate any rashes on examination today. Results & Data ([facility]) Vital Signs (Past 12 Hours) Vital Signs Temp Pulse Pulse Resp BP BP Pulse Ox 10/04/19 09:01 61 20 129/86 96 10/04/19 07:46 36.7 C 61 12 123/80 97 10/04/19 07:16 59 L 15 97/77 L 97 10/04/19 07:12 70 10/04/19 06:58 68 18 100/75 97 10/04/19 06:45 66 18 100/72 96 10/04/19 06:30 71 18 115/85 99 10/04/19 06:24 72 16 109/78 96 10/04/19 06:15 36.7 C 72 19 100/78 96 10/04/19 05:20 70 14 122/104 H 96 10/04/19 05:10 70 18 122/94 93 10/04/19 04:35 96 10/04/19 04:29 36.8 C 72 18 124/95 95 Laboratory Results Abnormal Lab Results 10/04/19 10/04/19 10/04/19 04:41 04:41 04:41 WBC 9.23 RBC 5.07 Hgb 15.5 POC Hgb Hct 45.1 POC Hct MCV 89.0 MCH 30.6 MCHC 34.4 RDW Std Deviation 42.4 RDW Coeff of Abbey 13.1 Plt Count 218 MPV 10.5 H Immature Gran % (Auto) 0.3 Neut % (Auto) 59.3 Lymph % (Auto) 30.7 [place] % (Auto) 8.0 Eos % (Auto) 1.5 Baso % (Auto) 0.2 Neut # (Auto) 5.47 Lymph # (Auto) 2.83 [place] # (Auto) 0.74 H Eos # (Auto) 0.14 Baso # (Auto) 0.02 Immature Gran # (Auto) 0.03 H PT Cancelled INR Cancelled APTT Cancelled PTT Ratio Cancelled Activ Coag Time Kaolin POC D-Dimer POC Sodium Sodium 139 POC Potassium Potassium POC Chloride Chloride 110 H Carbon Dioxide 22 POC Total CO2 Anion Gap 7.0 POC Anion Gap POC BUN BUN 17 Creatinine 1.16 POC Creatinine Est Cr Clr Drug Dosing 88.4 Est GFR ( Amer) 84.0 Est GFR (Non-Af Amer) 72.5 BUN/Creatinine Ratio 15.0 Glucose 149 H POC Glucose POC Glucose (other) Calcium 8.6 POC Ioniz Calcium Radha Magnesium Total Bilirubin 0.3 AST ALT 160 H Alkaline Phosphatase 99 POC Troponin I Troponin I 0.106 H* Total Protein 7.4 Albumin 3.4 Globulin 4.0 Albumin/Globulin Ratio 0.9 Triglycerides Cholesterol LDL Cholesterol, Calc VLDL Cholesterol, Calc HDL Cholesterol Cholesterol/HDL Ratio Lipase 1777 H TSH Nasal Screen MRSA (PCR) 10/04/19 10/04/19 10/04/19 04:47 04:48 04:55 WBC RBC Hgb POC Hgb 15.6 Hct POC Hct 46 MCV MCH MCHC RDW Std Deviation RDW Coeff of Abbey Plt Count MPV Immature Gran % (Auto) Neut % (Auto) Lymph % (Auto) [place] % (Auto) Eos % (Auto) Baso % (Auto) Neut # (Auto) Lymph # (Auto) [place] # (Auto) Eos # (Auto) Baso # (Auto) Immature Gran # (Auto) PT INR APTT PTT Ratio Activ Coag Time Kaolin POC D-Dimer > 450 H* POC Sodium 137 Sodium POC Potassium 4.4 Potassium POC Chloride 104 Chloride Carbon Dioxide POC Total CO2 22 L Anion Gap POC Anion Gap 17.0 POC BUN 23 H BUN Creatinine POC Creatinine 1.2 Est Cr Clr Drug Dosing Est GFR ( Amer) Est GFR (Non-Af Amer) BUN/Creatinine Ratio Glucose POC Glucose POC Glucose (other) 151 H Calcium POC Ioniz Calcium Radha 1.16 Magnesium Total Bilirubin AST ALT Alkaline Phosphatase POC Troponin I 0.08 H Troponin I Total Protein Albumin Globulin Albumin/Globulin Ratio Triglycerides Cholesterol LDL Cholesterol, Calc VLDL Cholesterol, Calc HDL Cholesterol Cholesterol/HDL Ratio Lipase TSH Nasal Screen MRSA (PCR) 10/04/19 10/04/19 10/04/19 05:18 05:18 05:18 WBC RBC Hgb POC Hgb Hct POC Hct MCV MCH MCHC RDW Std Deviation RDW Coeff of Abbey Plt Count MPV Immature Gran % (Auto) Neut % (Auto) Lymph % (Auto) [place] % (Auto) Eos % (Auto) Baso % (Auto) Neut # (Auto) Lymph # (Auto) [place] # (Auto) Eos # (Auto) Baso # (Auto) Immature Gran # (Auto) PT 10.5 INR 1.0 APTT 26.0 PTT Ratio 0.9 Activ Coag Time Kaolin POC D-Dimer POC Sodium Sodium POC Potassium Potassium 4.0 POC Chloride Chloride Carbon Dioxide POC Total CO2 Anion Gap POC Anion Gap POC BUN BUN Creatinine POC Creatinine Est Cr Clr Drug Dosing Est GFR ( Amer) Est GFR (Non-Af Amer) BUN/Creatinine Ratio Glucose POC Glucose POC Glucose (other) Calcium POC Ioniz Calcium Radha Magnesium 1.9 Total Bilirubin AST 80 H ALT Alkaline Phosphatase POC Troponin I Troponin I Total Protein Albumin Globulin Albumin/Globulin Ratio Triglycerides 142 Cholesterol 136 LDL Cholesterol, Calc 66 VLDL Cholesterol, Calc 28 HDL Cholesterol 42 Cholesterol/HDL Ratio 3 Lipase TSH 0.640 Nasal Screen MRSA (PCR) 10/04/19 10/04/19 10/04/19 06:05 07:35 07:50 WBC RBC Hgb POC Hgb Hct POC Hct MCV MCH MCHC RDW Std Deviation RDW Coeff of Abbey Plt Count MPV Immature Gran % (Auto) Neut % (Auto) Lymph % (Auto) [place] % (Auto) Eos % (Auto) Baso % (Auto) Neut # (Auto) Lymph # (Auto) [place] # (Auto) Eos # (Auto) Baso # (Auto) Immature Gran # (Auto) PT INR APTT PTT Ratio Activ Coag Time Kaolin 395 H POC D-Dimer POC Sodium Sodium POC Potassium Potassium POC Chloride Chloride Carbon Dioxide POC Total CO2 Anion Gap POC Anion Gap POC BUN BUN Creatinine POC Creatinine Est Cr Clr Drug Dosing Est GFR ( Amer) Est GFR (Non-Af Amer) BUN/Creatinine Ratio Glucose POC Glucose 128 H POC Glucose (other) Calcium POC Ioniz Calcium Radha Magnesium Total Bilirubin AST ALT Alkaline Phosphatase POC Troponin I Troponin I Total Protein Albumin Globulin Albumin/Globulin Ratio Triglycerides Cholesterol LDL Cholesterol, Calc VLDL Cholesterol, Calc HDL Cholesterol Cholesterol/HDL Ratio Lipase TSH Nasal Screen MRSA (PCR) Negative 10/04/19 11:32 WBC RBC Hgb POC Hgb Hct POC Hct MCV MCH MCHC RDW Std Deviation RDW Coeff of Abbey Plt Count MPV Immature Gran % (Auto) Neut % (Auto) Lymph % (Auto) [place] % (Auto) Eos % (Auto) Baso % (Auto) Neut # (Auto) Lymph # (Auto) [place] # (Auto) Eos # (Auto) Baso # (Auto) Immature Gran # (Auto) PT INR APTT PTT Ratio Activ Coag Time Kaolin POC D-Dimer POC Sodium Sodium POC Potassium Potassium POC Chloride Chloride Carbon Dioxide POC Total CO2 Anion Gap POC Anion Gap POC BUN BUN Creatinine POC Creatinine Est Cr Clr Drug Dosing Est GFR ( Amer) Est GFR (Non-Af Amer) BUN/Creatinine Ratio Glucose POC Glucose 200 H POC Glucose (other) Calcium POC Ioniz Calcium Radha Magnesium Total Bilirubin AST ALT Alkaline Phosphatase POC Troponin I Troponin I Total Protein Albumin Globulin Albumin/Globulin Ratio Triglycerides Cholesterol LDL Cholesterol, Calc VLDL Cholesterol, Calc HDL Cholesterol Cholesterol/HDL Ratio Lipase TSH Nasal Screen MRSA (PCR) Diagnostic Findings Cardiac catheterization revealed acute occlusion of left anterior descending. There are luminal regularities in the circumflex distribution and right coronary distribution. Moderate stenosis involving the proximal PDA. Echocardiogram demonstrated preserved LV systolic function with regional wall motion abnormalities consistent with his LAD occlusion CT of the abdomen pelvis revealed postsurgical changes of known gastric surgery and cholecystectomy ECG Additional Comments: initial EKG demonstrated sinus rhythm with elevations in the anterior precordial leads. Subsequent EKGs demonstrated evolution of anterior infarct PG Care Time/CCT Total # of Minutes Spent Total Time Spent with Patient: Total time spent is greater than 50% in coordination of care (as documented) at patient's floor/unit and/or counseling patient: Coding Level of Care Code 15262 Inpt Consult Level 4 Diagnoses STEMI (ST elevation myocardial infarction) I21.02 Involved coronary artery: LAD coronary artery High blood pressure I10 Elevated lipase R74.8 (1) STEMI (ST elevation myocardial infarction) Involved coronary artery: LAD coronary artery Qualified Code(s): I21.02 - ST elevation (STEMI) myocardial infarction involving left anterior descending coronary artery
[2019-10-04] MEDS ORDERED: GLUCOSE 40% GEL 15 GM TUBE PO PRN (12:27)
[2019-10-04] MEDS ORDERED: GLUCOSE 10 TABS/TUBE PO PRN (12:27)
[2019-10-04] MEDS ORDERED: CARBOHYDRATES FOR HYPOGLYCEMIA PO PRN (12:27)
[2019-10-04] MEDS ORDERED: GLUCAGON FOR INJ 1 MG VIAL SQ PRN (12:27)
[2019-10-04] MEDS ORDERED: DEXTROSE 50% 50 ML SYRINGE IV PRN (12:27)
[2019-10-04] MEDS: INSULIN ASPART 100 UNITS/ML 3 ML PEN SC SCH ×3 (13:43→20:43)
[2019-10-04] MEDS: TICAGRELOR 90 MG TAB PO SCH (20:43)
[2019-10-05] MEDS: NORMOSOL-R 1,000 ML IV SCH (00:32)
--- NOTE | 2019-10-05 02:05 | Billing Data ---
Date of Service October 05, 2019 Coding Level of Care Code Critical Care 1st - mins
[2019-10-05 05:35] LABS: BUN Creatinine Ratio 14.1 (10-20); Creatinine Clr Calc Pharmacy 113.6 ml/min; Est GFR (African American) 114.2; Est GFR (Non-African American) 98.5
[2019-10-05 06:01] LABS: Phosphorus 2.3 mg/dl (2.5-4.9); Troponin I 45.3 ng/ml (0-0.045)
--- NOTE | 2019-10-05 06:57 | Critical Care Progress Note ---
Date of Service October 05, 2019 Assessment & Plan (1) STEMI (ST elevation myocardial infarction): Reason Critically Ill: 49 yo M here with a PMHx significant for HTN and smoking abuse who presented with chest pain and who was taken for urgent catheterization for ST elevations on EKG. Admitted to ICU for close monitoring following catheterization and stent placement. Neuro - CAM ICU: NEGATIVE Sedation: none Analgesia: none Cardiac - STEMI and Elevated D-Dimer: -On arrival with crushing chest pain. -EKG showed ST elevations in anterior and septal leads, and troponin elevated to 0.106. -Heart Alert called, urgent catheterization performed by Dr. Augustin which showed 100% stenosis of the LAD. Drug-eluting stent placed to the mid-LAD. - D-dimer on arrival elevated to >450. - Likely due to acute STEMI. - With oxygen saturation of 90-93% on RA prior to stenting, now 96-99%. 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 - Calf size symmetrical, with rapid improvement in oxygenation s/p catheterization. - CTPE deferred given asymptomatic. - Troponin this AM 45; this is not surprising given 100% stenosis that has been stented. Expect downtrend over next several days. - Echo performed which showed borderline reduced LV systolic function, Grade 2 diastolic dysfunction (pseudonormalization pattern), RVSP 30-40mmHg, apical akinesis with some dyskinesis in the anterior segments. - Will need management of risk factors, including blood pressure, cholesterol, BSG, smoking. - Lipid panel: total cholesterol 136, LDL 66, HDL 42, TG 142. Atorvastatin 40mg daily initiated. - Hgb A1c 6.0; should discuss starting treatment with metformin for pre- diabetes. - Aspirin 324 given en route to ER. Continue aspirin 81mg daily. - Brillinta 90mg BID. - Metoprolol tartrate 25mg BID. - Lisinopril 5mg daily. - Cardiology consulted and appreciate recommendations; will need Cardiology and Cardiac Rehabilitation once he returns home to [place]. Respiratory - - Without respiratory complaints. - CXR performed 10/03 showed pulmonary vascular congestion, and potential interstitial infiltrative change of both lung bases. - Continuous oxygen monitoring, goal O2 saturation >92%. - Saturating well on room air and without respiratory complaints. Smoking Hx: - Has 25 pack year history of smoking. - Does not desire nicotine patch at this time. - Encourage smoking cessation to minimize heart disease risk. GI - - Heart Healthy diet. - GI ppx given ICU status and DAPT; pantoprazole 40mg PO daily. Elevated ALT/lipase: - On arrival with elevated lipase to 1777. - Without complaints of abdominal pain, nausea, or vomiting suggestive of pancreatitis. - Possible etiologies of elevated lipase include alcohol abuse, CBD stone, triglyceridemia, infection, malignancy. - s/p cholecystectomy 1 month ago. - CTAP without contrast did not show any acute process that would explain elevated lipase. - lipid panel without hypertriglyceridemia. - Will monitor for signs of alcohol withdrawal, though patient has been without signs to date. Hx alcohol use: - Patient endorses intermittent alcohol consumption, once weekly and will have 5 shots at that time. - He states "of course I drink, I am [place]". - No outward signs of withdrawal. - At low risk of withdrawal, monitor closely and initiate AWSS protocol if begins to exhibit signs of withdrawal. RENAL/LYTES - - Given cardiac pathology replete electrolytes as needed to maintain K >4, Mg >2. - Phos 2.4 this AM; today will give Potassium Phosphate with Sodium, 1 tablet QID today. Elevated Creatinine: - With a baseline normal creatinine. - With some mild elevation on admission to 1.17; this is prior to cardiac catheterization. - CTAP to be performed without contrast for renal protection. - Creatinine improved with PO hydration after stenting to 0.90. Suspect elevati on due to catheterization contrast vs. ischemic stress which has since resolved. - - No concerns at this time. ENDO - Patient without history of thyroid disease or DM2. - BSG on BMP 149. Hgb A1c 6.0. - May benefit from prediabetes treatment with metformin, defer to primary care physician. - ICU hyperglycemia protocol until downgraded. HEME - - Stable H&H. - CBC daily. ID - - CBC without leukocytosis, no fever on arrival and no reports of fever. - No concern for infection at this time, continue to monitor. INTEGUMENTARY - - No current integumentary concerns. LINES/IV ACCESS - - PIVs intact. DVT PROPHYLAXIS - - Heparin 5000u SQ q12h for DVT prophylaxis. CODE STATUS FULL CODE This patient is stable for downgrade to floor this morning. ICU will monitor patient until off of floor. Thank you for allowing us to be part of this patient's care. Please refer to Dr. Cabello's documentation for any further recommendations. (2) High blood pressure: (3) Hyperglycemia: (4) Elevated lipase: (5) Chronic alcohol use: Admission and Anticipated Discharge Date Admission Date: October 04, 2019 Supervising Physician Co-Signing Physician Notes Yamileth Linares was the resident-physician during care of patient. I separately evaluated patient for stratton portions of the history and the exam. I was present during the critical portion of medical decision making, and I discussed the case with the resident. I generally agree with the findings and plan except for any additions/exceptions noted. Patient seen and examined at bedside. Medically he is doing much better. Denies any chest pain, no dizziness, no palpitation, no headache. Tolerating diet well. Importance of quitting smoking explained to the patient in depth. Social Media Community Manager has been informed to make sure the patient's insurance covers [employer]. Follow cardiology recommendation. Phosphorus 2.3 with sodium 134 we will give sodium phosphate p.o. for 1 day. Pantoprazole has been started as the patient is on dual antiplatelet therapy. I think patient is hemodynamically stable enough to be downgraded to a medical floor. I have personally spent 33 minutes of critical care time in the direct management of this patient. This is a life/limb threatening event. This includes time spent evaluating patient, direct bedside care, chart review, placing orders, interpretation of diagnostic studies, discussion with consultants, patient, and/or family members regarding treatment decisions, as well as other required patient management activities. This time is exclusive of all separately billable procedures, and teaching time and separate from and in addition to any other critical care service time. Subjective Patient without acute events overnight. Denies CP, SOB, palpitations, dizziness, headaches. No complaints of abdominal pain, nausea, vomiting, diarrhea or constipation. Denies fevers or chills. This AM we discussed his smoking history; he reports 1-1.5 packs per day smoking for decades. His father also had CAD and peripheral vascular disease, and ultimately demised due to sequelae of such. Patient is aware that he needs to quit smoking, and is not having difficulty with desire to smoke in the hospital, though is concerned that he will go back to smoking once he leaves. 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 Review of Systems Review of Systems: All systems reviewed & are unremarkable except as noted in Subjective Physical Exam Constitutional: WD/WN, vitals as above Eyes: PERRL, conjunctivae normal, anicteric sclerae ENMT: external ear and nose normal, oropharynx normal Neck: normal visual inspection Respiratory: normal respiratory effort, lungs clear to auscultation Cardiovascular: RRR, no murmur, no edema Gastrointestinal (Abdomen): normal bowel sounds, soft, nontender, no hepatosplenomegaly Musculoskeletal: no cyanosis or clubbing, extremities motor strength 5/5 Skin: no rashes, warm and dry Neurologic: AAOx3, normal speech. PERRLA, EOMI, no nystagmus. Normal visual acuity bilaterally. Bilateral UE, LE, and face without sensory or motor deficits. DTRs normal. No tremor. No ataxia. Psychiatric: A+Ox3, euthymic affect Results & Data Results & Data ([facility]) Vital Signs (Past 12 Hours) Vital Signs Temp Pulse Resp BP Pulse Ox 10/05/19 05:50 71 16 103/78 96 10/05/19 04:50 67 18 112/80 96 10/05/19 03:50 36.6 C 73 13 106/76 99 10/05/19 02:50 65 18 98/69 L 97 10/05/19 01:50 68 15 106/76 98 10/05/19 00:50 72 19 103/72 95 10/04/19 23:50 36.8 C 73 21 119/79 96 10/04/19 22:50 72 18 92/70 L 93 10/04/19 21:50 64 16 106/76 98 10/04/19 20:50 66 18 117/83 96 10/04/19 19:50 36.9 C 67 14 105/82 98 10/04/19 04:41 10/05/19 04:36 Resident Activity Tracking Resident Involvement: Resident Care Provided Care Provided: Adult Hospital Medicine (1) STEMI (ST elevation myocardial infarction) Involved coronary artery: LAD coronary artery Qualified Code(s): I21.02 - ST elevation (STEMI) myocardial infarction involving left anterior descending coronary artery
[2019-10-05 07:06] LABS: Estimated Average Glucose 126 mg/dl
[2019-10-05] MEDS: PANTOprazole 40 MG TAB PO SCH (08:24)
[2019-10-05] MEDS: lisinopriL 5 MG TAB PO SCH (08:25)
[2019-10-05] MEDS: ASPIRIN 81 MG ECTAB PO SCH (08:25)
[2019-10-05] MEDS: ATORVASTATIN 40 MG TAB PO SCH (08:25)
[2019-10-05] MEDS: TICAGRELOR 90 MG TAB PO SCH ×2 (08:26→20:36)
[2019-10-05] MEDS: HEPARIN SOD 5,000 UNIT/0.5 ML VIAL SQ SCH ×2 (08:26→20:36)
[2019-10-05] MEDS: METOPROLOL TARTRATE 25 MG TAB PO SCH ×2 (08:26→20:37)
[2019-10-05] MEDS: POT PHOSPHATE MONOBASIC W/ SOD TAB PO SCH ×4 (08:31→20:36)
--- NOTE | 2019-10-05 09:25 | Cardiology Progress Note ---
Date of Service October 05, 2019 Assessment & Plan (1) STEMI (ST elevation myocardial infarction): He is doing well status post anterior myocardial infarction. Cardiac biomarkers are significant elevated consistent with his event and echocardiographic findings. However, he has not had recurrent ischemic symptoms or objective signs of ischemia. no symptoms or exam consistent with heart failure. He did have a very brief run of nonsustained ventricular tachycardia lasting 7 seconds very early this morning. No other arrhythmias. Seems to be tolerating medical therapy well without evidence of dizziness or lightheadedness. His EKG demonstrates standard evolutionary changes. We will continue him on his current regimen which consists of beta-blockade, Domingo inhibition, dual anti-platelet therapy and high-dose atorvastatin. I think he is safe for transfer to the telemetry [place] today. We will gradually increase his activity and reassess his need for hospitalization tomorrow. (2) High blood pressure: he has a history of hypertension for which she uses transdermal clonidine. No rebound hypertension. We will discontinue this medication in favor of the agents above (3) Elevated lipase: Admission and Anticipated Discharge Date Admission Date: October 04, 2019 Subjective This morning patient claims to be feeling well. He denies any recurrence of his index chest pain. He reports being ambulatory to the commode and back without dyspnea or dizziness. No pain at the right radial access site. Good appetite. No nausea. Review of Systems Review of Systems: Per HPI Physical Exam Physical Exam: The patient is alert and oriented. Mood and affect appeared normal. He answered all questions appropriately. HEENT: Pupils are equal and reactive to light and accommodation. Extraocular movements are intact. The sclerae are anicteric. Neuro: Cranial nerves intact Lungs: Clear to auscultation bilaterally. He has good air movement without use of accessory muscles. No rales wheezes or rhonchi. Cardiac: Heart demonstrates a regular rate and rhythm. Normal S1 and S2. No murmurs on examination. Pulses: The patient has palpable radial pulses bilaterally that are equal in intensity Extremities: There was no evidence of hypoperfusion. There is no cyanosis or clubbing. There is no edema. Skin: I did not appreciate any rashes on examination today. Results & Data ([facility]) Vital Signs (Past 12 Hours) Vital Signs Temp Pulse Resp BP Pulse Ox 10/05/19 05:50 71 16 103/78 96 10/05/19 04:50 67 18 112/80 96 10/05/19 03:50 36.6 C 73 13 106/76 99 10/05/19 02:50 65 18 98/69 L 97 10/05/19 01:50 68 15 106/76 98 10/05/19 00:50 72 19 103/72 95 10/04/19 23:50 36.8 C 73 21 119/79 96 10/04/19 22:50 72 18 92/70 L 93 10/04/19 21:50 64 16 106/76 98 Laboratory Results Abnormal Lab Results 10/04/19 10/04/19 10/04/19 04:41 11:32 16:34 Sodium Potassium Chloride Carbon Dioxide Anion Gap BUN Creatinine Est Cr Clr Drug Dosing Est GFR ( Amer) Est GFR (Non-Af Amer) BUN/Creatinine Ratio Glucose POC Glucose 200 H 102 H Estimat Average Glucose 126 Hemoglobin A1c 6.0 H Calcium Phosphorus Magnesium Troponin I 10/04/19 10/05/19 10/05/19 20:42 04:36 06:38 Sodium 139 Potassium 4.0 Chloride 108 H Carbon Dioxide 25 Anion Gap 6.0 BUN 13 Creatinine 0.90 Est Cr Clr Drug Dosing 113.6 Est GFR ( Amer) 114.2 Est GFR (Non-Af Amer) 98.5 BUN/Creatinine Ratio 14.1 Glucose 108 H POC Glucose 151 H 117 H Estimat Average Glucose Hemoglobin A1c Calcium 9.0 Phosphorus 2.3 L Magnesium 2.0 Troponin I 45.300 H* PG Care Time/CCT Total # of Minutes Spent Total Time Spent with Patient: Total time spent is greater than 50% in coordination of care (as documented) at patient's floor/unit and/or counseling patient: Coding Level of Care Code 15825 Subseq Hosp Care Lvl 3 Diagnoses STEMI (ST elevation myocardial infarction) I21.02 Involved coronary artery: LAD coronary artery High blood pressure I10 Elevated lipase R74.8 (1) STEMI (ST elevation myocardial infarction) Involved coronary artery: LAD coronary artery Qualified Code(s): I21.02 - ST elevation (STEMI) myocardial infarction involving left anterior descending coronary artery
[2019-10-05] MEDS: INSULIN ASPART 100 UNITS/ML 3 ML PEN SC SCH ×4 (09:46→20:35)
--- NOTE | 2019-10-05 11:58 | Billing Data ---
Date of Service October 05, 2019 Coding Level of Care Code Critical Care 1st 30-74 mins Time Spent (min) 33
--- NOTE | 2019-10-05 12:28 | Medical Student Progress Note ---
Date of Service October 05, 2019 Assessment & Plan (1) STEMI (ST elevation myocardial infarction): Patient has been stable overnight. Has been in sinus rhythm all night. Move patient to telemetry floor for 24 hour monitoring post cardiac cath. troponin has trended up to 45 which is expected after complete occlusion of LAD. Continue to trend troponin labs q 4 hrs. Would expect them to trend down over next 24 hours Continue atorvastatin 40 mg lisinopril 5mg aspirin 81 mg brillenta 90 mg BID metoprolol tartrate 25 mg BID Patient should follow up with cardiac rehab upon discharge Involved coronary artery: LAD coronary artery Qualified Code(s): I21.02 - ST elevation (STEMI) myocardial infarction involving left anterior descending coronary artery (2) High blood pressure: Continue lisinopril 5mg and metoprolol 25 mg BID Present on Admission?: Yes (3) Elevated lipase: CT scan of abdomen showed no acute changes. elevated lipase levels could have been caused by alcohol use or elevated triglycerides. Obtain another pancreatic lipase lab today (4) Hyperglycemia: Patient is in the prediabetic range with an A1c of 6. Encourage the patient to try to loose weight, decrease sugar intake and to increase his green vegetable intake. Patient may benefit from metformin post discharge. Follow up with PC Present on Admission?: Yes (5) Chronic alcohol use: Patient admits to drinking more than 5-6 drinks a week. Encourage patient to limit alcohol intake as this can make it more difficult to control his HTN and could be etiology behind his elevated pancreatic lipase levels. Present on Admission?: Yes Supervising Attestation Pt seen and examined by me. See my note for details Subjective 49 y/o male with a hx of HTN and current tobacco abuse with 30 pack years presented to the ED last night via ambulance after waking up with crushing chest pain. Troponin was elevated and EKG showed ST elevation in anterolateral leads. Cardiac catheterization was performed which showed 100% occlusion of the LAD. Drug eluting stent was then placed. After stent placement patients chest pain resolved and his oxygenation improved from 91-92% to 96%. Today he his on day one of hospital admission in the ICU. Today he has no chest pain and no complaints. He slept well overnight. He has had no chest pain or shortness of breath. He has been ambulating from his bed to the bathroom and he has had no SOB or difficulties ambulating. He has been oxygenating well at above 95% on room air. He does not endorse dyspnea on exertion, orthopnea, PND, lower extremity swelling or palpations. This morning patient claims to be feeling well. He denies any recurrence of his index chest pain. [facility] without dyspnea or dizziness. No pain at the right radial access site. Good appetite. No nausea. Review of Systems Constitutional: no fever, no body aches, no weakness and no weight loss Eyes: no diplopia and no loss of peripheral vision Ear, Nose, Mouth, Throat: no tinnitus, no dizziness, no hoarseness, no dysphagia and no pain with swallowing Respiratory: no cough and no dyspnea Cardiovascular: no chest pain, no chest pain with activity, no dyspnea, no dyspnea at rest and no orthopnea Gastrointestinal: no abdominal pain, no nausea, no vomiting, no dysphagia, no change in stools and no diarrhea/loose stools Musculoskeletal: no swelling and no myalgia Neurologic: no localized weakness, no loss of sensation, no paresthesia, no headache(s) and no confusion Psychiatric: no depression Hematologic / Lymphatic: no easy bleeding, no easy bruising and no night swea ts Physical Exam Constitutional: WD/WN, vitals as above well developed Eyes: PERRL, conjunctivae normal, anicteric sclerae Respiratory: normal respiratory effort, lungs clear to auscultation course breath sounds BL Cardiovascular: RRR, no murmur, no edema Heart Sounds: normal S1 and normal S2; no click, no gallop and no cardiac rub Palpation: no heave Vessels: normal peripheral pulses, normal carotid upstroke and dorsalis pedis pulses present; no JVD and no carotid bruit Extremities: no calf tenderness and no edema Gastrointestinal (Abdomen): normal bowel sounds, soft, nontender, no hepatosplenomegaly Results & Data ([facility]) Vital Signs (Past 12 Hours) Vital Signs Temp Pulse Resp BP Pulse Ox 10/05/19 11:01 68 13 97 10/05/19 10:50 78 18 113/88 98 10/05/19 10:01 75 17 98 10/05/19 09:50 76 20 108/72 98 10/05/19 09:00 73 15 98 10/05/19 08:50 70 16 106/69 97 10/05/19 08:00 78 17 97 10/05/19 07:50 76 16 118/85 97 10/05/19 07:00 62 11 L 99 10/05/19 06:50 62 11 L 109/73 98 10/05/19 06:00 66 21 97 10/05/19 05:50 71 16 103/78 96 10/05/19 04:50 67 18 112/80 96 10/05/19 03:50 36.6 C 73 13 106/76 99 10/05/19 02:50 65 18 98/69 L 97 10/05/19 01:50 68 15 106/76 98 10/05/19 00:50 72 19 103/72 95
--- NOTE | 2019-10-05 17:39 | Hospitalist Progress Note ---
Date of Service October 05, 2019 Assessment & Plan (1) STEMI (ST elevation myocardial infarction): Chest pain 2/2 STEMI EKG with anteroseptal J-point elevation, ST elevation with minimal reciprocal changes First troponin elevated at 0.106 09/03 chest pain persists slightly improved following aspirin, fentanyl, nitrates Patient received aspirin, nitro, and fentanyl Per interventional cardiology patient was given heparin bolus with drip and Brilinta. 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 Denies withdrawal sx in past -CTAP: neg for acute, specifically pancreas is WNL - BMP daily (4) Hyperglycemia: A1c 6.0 Monitor (5) History of weight loss surgery: Noted (6) High blood pressure: - Pt on metoprolol unknown dose, pt poor historian - PORTFOLIO STRATEGIST clonidine 0.3mg/day held pending cath - MTP tartrate 25mg BID, may convert to succinate on d/c (7) DVT prophylaxis: Heparin for DVT proph Admission and Anticipated Discharge Date Admission Date: October 04, 2019 Subjective Pt states he feels fine at this time. He has had no further chest pain. Tolerating PO without issue. Pt denies fever, SOB, abd pain, n/v/c/d, LE pain or swelling. Review of Systems Review of Systems: Pertinent positives and negatives reviewed in HPI--all others negative Physical Exam Constitutional: WD/WN, vitals as above Eyes: normal visual treviño by confrontation and + anicteric sclerae Neck: normal visual inspection and trachea midline Respiratory: normal respiratory effort, lungs clear to auscultation Cardiovascular: Rate/Rhythm: regular rate and regular rhythm Gastrointestinal (Abdomen): Inspection/Auscultation: abdomen not distended Percussion/Palpation: abdomen soft; abdomen nontender Musculoskeletal: Head/Neck/Chest: normocephalic and head atraumatic n egative for edema, peripheral pulses intact Skin: no rashes, warm and dry Neurologic: awake; not confused Speech / Cognition: normal speech Psychiatric: A+Ox3, euthymic affect Results & Data Results & Data ([facility]) Vital Signs (Past 12 Hours) Vital Signs Pulse Resp BP Pulse Ox 10/05/19 17:01 87 17 99 10/05/19 16:50 78 19 109/84 98 10/05/19 16:00 82 20 98 10/05/19 15:50 74 12 118/90 99 10/05/19 15:00 60 13 96 10/05/19 14:50 64 16 88/62 L 96 10/05/19 14:00 66 15 96 10/05/19 13:50 77 20 97/69 L 98 10/05/19 13:11 96 H 18 99 10/05/19 12:51 86 16 122/76 99 10/05/19 12:00 79 22 96 10/05/19 11:50 81 16 104/70 98 10/05/19 11:01 68 13 97 10/05/19 10:50 78 18 113/88 98 10/05/19 10:01 75 17 98 10/05/19 09:50 76 20 108/72 98 10/05/19 09:00 73 15 98 10/05/19 08:50 70 16 106/69 97 10/05/19 08:00 78 17 97 10/05/19 07:50 76 16 118/85 97 10/05/19 07:00 62 11 L 99 10/05/19 06:50 62 11 L 109/73 98 10/05/19 06:00 66 21 97 10/05/19 05:50 71 16 103/78 96 PG Care Time/CCT Total # of Minutes Spent Total Time Spent with Patient: Total time spent is greater than 50% in coordination of care (as documented) at patient's floor/unit and/or counseling patient: Coding Level of Care Code 84256 Subseq Hosp Care Lvl 3 Diagnoses STEMI (ST elevation myocardial infarction) I21.02 Involved coronary artery: LAD coronary artery Chronic alcohol use Z72.89 Elevated lipase R74.8 Hyperglycemia R73.9 History of weight loss surgery Z98.84 High blood pressure I10 DVT prophylaxis Z29.9 (1) STEMI (ST elevation myocardial infarction) Involved coronary artery: LAD coronary artery Qualified Code(s): I21.02 - ST elevation (STEMI) myocardial infarction involving left anterior descending coronary artery
[2019-10-06] MEDS ORDERED: TICAGRELOR 90 MG TAB PO SCH
[2019-10-06] MEDS: TICAGRELOR 90 MG TAB PO SCH (08:17)
[2019-10-06] MEDS: ATORVASTATIN 40 MG TAB PO SCH (08:18)
[2019-10-06] MEDS: lisinopriL 5 MG TAB PO SCH (08:18)
[2019-10-06] MEDS: ASPIRIN 81 MG ECTAB PO SCH (08:18)
[2019-10-06] MEDS: PANTOprazole 40 MG TAB PO SCH (08:18)
[2019-10-06] MEDS: HEPARIN SOD 5,000 UNIT/0.5 ML VIAL SQ SCH (08:19)
[2019-10-06] MEDS: METOPROLOL TARTRATE 25 MG TAB PO SCH (08:19)
[2019-10-06] MEDS: INSULIN ASPART 100 UNITS/ML 3 ML PEN SC SCH ×2 (08:19→11:56)
--- NOTE | 2019-10-06 08:56 | Cardiology Progress Note ---
Date of Service October 06, 2019 Assessment & Plan (1) STEMI (ST elevation myocardial infarction): he is doing well status post anterior myocardial infarction. No recurrent symptoms of ischemia. No evidence of heart failure or pulmonary vascular congestion. No additional arrhythmias. He seems to be tolerating his medical therapy well. I think he would be safe for discharge. I would change his atorvastatin to 80 milligrams daily I would change his metoprolol tartrate to metoprolol succinate 50 milligrams at the time of discharge He will continue aspirin and Brilinta he will continue his current dose of lisinopril no indication for aldosterone antagonist he does have scheduled follow-up with a commercial sales manager on Saturday in [place]. At that time he can be assessed for cardiac rehab. (2) High blood pressure: he has a history of hypertension for which she uses transdermal clonidine. No rebound hypertension. We will discontinue this medication in favor of the agents above (3) Elevated lipase: (4) Tobacco abuse: he was advised to discontinue smoking. He is interested in stopping. he can discuss options for medical therapy is her with his primary care physician. Admission and Anticipated Discharge Date Admission Date: October 04, 2019 Subjective This morning placed in claims to be feeling well. He has not had any recurrence of his index chest pain. He has been ambulatory around his room and reportedly around the hallway without symptoms. No dyspnea. No orthopnea. No dizziness. No palpitations. Review of Systems Review of Systems: Per HPI Physical Exam Physical Exam: The patient is alert and oriented. Mood and affect appeared normal. He answered all questions appropriately. HEENT: Pupils are equal and reactive to light and accommodation. Extraocular movements are intact. The sclerae are anicteric. Neuro: Cranial nerves intact Lungs: Clear to auscultation bilaterally. He has good air movement without use of accessory muscles. No rales wheezes or rhonchi. Cardiac: Heart demonstrates a regular rate and rhythm. Normal S1 and S2. No murmurs on examination. Pulses: The patient has palpable radial pulses bilaterally that are equal in intensity Extremities: There was no evidence of hypoperfusion. There is no cyanosis or clubbing. There is no edema. Skin: I did not appreciate any rashes on examination today. Results & Data ([facility]) Vital Signs (Past 12 Hours) Vital Signs Temp Pulse Pulse Pulse Resp BP Pulse Ox 10/06/19 07:23 37.1 C 60 16 111/77 94 10/06/19 04:00 36.9 C 70 18 113/74 96 10/05/19 23:07 75 10/05/19 22:49 37.0 C 71 16 108/85 95 Laboratory Results Abnormal Lab Results 10/05/19 10/05/19 10/05/19 11:31 16:31 20:31 POC Glucose 175 H 107 H 112 H 10/06/19 07:25 POC Glucose 103 H ECG Additional Comments: EKG pending review of his telemetry did not demonstrate any arrhythmias. Some very mild sinus bradycardia. No recurrent nonsustained VT PG Care Time/CCT Total # of Minutes Spent Total Time Spent with Patient: Total time spent is greater than 50% in coor dination of care (as documented) at patient's floor/unit and/or counseling patient: Coding Level of Care Code 49560 Subseq Hosp Care Lvl 2 Diagnoses STEMI (ST elevation myocardial infarction) I21.02 Involved coronary artery: LAD coronary artery High blood pressure I10 Elevated lipase R74.8 Tobacco abuse Z72.0 (1) STEMI (ST elevation myocardial infarction) Involved coronary artery: LAD coronary artery Qualified Code(s): I21.02 - ST elevation (STEMI) myocardial infarction involving left anterior descending coronary artery
[2019-10-06] MEDS ORDERED: Nursing to Pharmacy Communication SCH (13:30)
--- NOTE | 2019-10-07 23:57 | Electrocardiogram Report ---
Test Reason : Blood Pressure : / mmHG Vent. Rate : 069 BPM Atrial Rate : 069 BPM P-R Int : 174 ms QRS Dur : 100 ms QT Int : 484 ms P-R-T Axes : 041 -19 128 degrees QTc Int : 518 ms Normal sinus rhythm Anterior infarct T wave abnormality, consider lateral ischemia Prolonged QT ST elevation, consider anterior injury ACUTE CA / STEMI Abnormal ECG When compared with ECG of 04-OCT-2019 06:29, ST elevation now present in Anterior leads T wave inversion now evident in Anterior leads QT has lengthened Confirmed by Eduardo Hoffman ([id number] on 10/07/2019 11:57:21 PM Referred By: REFERRED SELF Confirmed By:Eduardo Hoffman
--- NOTE | 2019-10-13 09:33 | Discharge Summary ---
Date of Service October 06, 2019 Admission HPI Per Admitting Provider Michel is a 49-year-old male with a past medical history of hypertension who presented after developing acute which awoke him from sleep 810/10 left-sided chest pain and J-point changes concerning for acute IL causing him to call 911 for transport to the emergency department. On arrival he was found to have ST elevations with J-point elevation concerning for acute IL. 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 He did not have shortness of breath or diaphoresis. He denies abdominal pain, nausea, vomiting, fever, chills, cough, shortness of breath, and difficulty breathing. His pain was slightly improved following aspirin/nitro/fentanyl and is 7/10 at time of evaluation pending catheterization. Patient is a poor historian of medications, reports he is on metoprolol but is not sure the dose and clonidine patch. He is a daily 1 pack/day tobacco user, endorses regular alcohol intake "I am [place] ", no recreational drug use. No history of withdrawal. Medical history: Hypertension Surgical history: Cholecystectomy 1 month ago, history of weight loss surgery Allergies: No medication allergies Medications: Metoprolol of unclear dose, clonidine 0.3 mg/day patch Social: Tobacco, alcohol as above. 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 CODE STATUS: Full code Principal Diagnosis STEMI Discharge Exam Constitutional: WD/WN, vitals as above Eyes: normal visual treviño by confrontation and + anicteric sclerae Neck: normal visual inspection and trachea midline Respiratory: normal respiratory effort, lungs clear to auscultation Cardiovascular: Rate/Rhythm: regular rate and regular rhythm Gastrointestinal (Abdomen): Inspection/Auscultation: abdomen not distended Percussion/Palpation: abdomen soft; abdomen nontender Musculoskeletal: Head/Neck/Chest: normocephalic and head atraumatic negative for edema, peripheral pulses intact Skin: no rashes, warm and dry Neurologic: awake; not confused Speech / Cognition: normal speech Psychiatric: A+Ox3, euthymic affect Discharge Data Allergies Allergy/AdvReac Type Severity Reaction Status Date / Time No Known Allergies Allergy Unverified 10/04/19 06:15 Consultations 10/04/19 05:24 Consult Cardiology Routine 10/04/19 05:28 ED Decision to Admit Stat 10/04/19 06:28 Consult Case Management - Discharge Planning Routine Consult Outside Contractor Sales Routine 10/06/19 08:35 HIM [Consult Health Information Management] Routine 10/06/19 08:39 Burn CD for patient Routine Procedures Performed Operation Date: 10/04/19 05:00 Actual Procedures s Cineradiography w/Routine Exam - Jasvir Augustin MD p Aspiration/PCI w/KWAME for Stemi - Jasvir Augustin MD Ordered Studies 10/04/19 05:10 CL Cath Imgs for PACS use only Stat 10/04/19 06:28 CT abd pelvis wo con Routine Hospital Course (1) STEMI (ST elevation myocardial infarction): Chest pain 2/2 STEMI EKG with anteroseptal J-point elevation, ST elevation with minimal reciprocal changes First troponin elevated at 0.106 7/10 chest pain persists slightly improved following aspirin, fentanyl, nitrates Patient received aspirin, nitro, and fentanyl Per interventional cardiology patient was given heparin bolus with drip and Brilinta. 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 No recurrent symptoms of ischemia. No evidence of heart failure or pulmonary vascular congestion. No additional arrhythmias. He seems to be tolerating his medical therapy well. I think he would be safe for discharge. I would change his atorvastatin to 80 milligrams daily I would change his metoprolol tartrate to metoprolol succinate 50 milligrams at the time of discharge He will continue aspirin and Brilinta He will continue his current dose of lisinopril No indication for aldosterone antagonist He does have scheduled follow-up with a christmas tree farmer on Saturday in [place]. At that time he can be assessed for cardiac rehab. 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 Denies withdrawal sx in past -CTAP: neg for acute, specifically pancreas is WNL - BMP daily (4) Hyperglycemia: A1c 6.0 Monitor (5) History of weight loss surgery: Noted (6) High blood pressure: - Pt on metoprolol unknown dose, pt poor historian - [employer] clonidine 0.3mg/day held pending cath - MTP tartrate 25mg BID, may convert to succinate on d/c (7) DVT prophylaxis: Heparin for DVT proph Total Time Total Time Spent Total Time Spent (In Minutes): 32 Discharge Plan Discharge Items Patient Disposition: Home - Self-Care Reason For Visit: ACS, POST CATH Discharge Diagnosis: Heart attack Condition on Discharge: Good Activity: Resume your previous activity Non-emergency contact: Primary Care Provider Call non-emergency contact if: you have any medication questions Follow-up/Referrals: PCP,NO [Physician] - Diet: Heart Healthy Addtl Attending Provider Instructions: Home Care: * Take your medications exactly as directed. Don't skip doses. * Remember that recovery after a heart attack takes time. Plan to rest for at lease 4-8 weeks while you recover. Then return to normal activity when your doctor says it's okay. * Ask your doctor about joining a heart rehabilitation program. * Tell your doctor if you are feeling depressed. Feelings of sadness are common after a heart attack, but it is important that you speak to someone if you are feeling overwhelmed by these feelings. * If you are having chest pain, call 911 for an ambulance. Do NOT drive yourself to the hospital. * Ask your family members to learn CPR. * Learn to take your own blood pressure and pulse. Keep a record of your results. Ask your doctor when you should seek emergency medical attention. He or she will tell you which blood pressure reading is dangerous. Lifestyle Changes: * Maintain a healthy weight. Get help to lose any extra pounds. * Cut back on salt. * Limit canned, dried, packaged, and fast foods. * Don't add salt to your food. * Season foods with herbs instead of salt when you cook. * Break the smoking habit. Enroll in a stop-smoking program to improve your chances of success. * Limit fatty foods. * Ask your doctor about having your lipid levels checked regularly. * Build up your activity according to your doctor's recommendation. * Ask your doctor when it's okay to resume sexual activity. * Tell your doctor about any erectile dysfunction (ED) medication you are taking. Some ED medications are not safe if you take certain heart medications. * Try to manage stress. Follow Up: It is important for you to keep your follow up appointments with your medical provider. Pending Studies at Discharge: No Stand-Alone Forms: [facility], Smoking Cessation Medications and DC Order Prescriptions: New atorvastatin 40 mg Tablet 80 mg PO QAM Qty: 60 RF: 0 nitroglycerin [Nitrostat] 0.4 mg Tablet, Sublingual 0.4 mg sublingual PRN PRN (Reason: chest pain) Qty: 7 RF: 0 lisinopril [Zestril] 5 mg Tablet 5 mg PO QAM Qty: 30 RF: 0 Brilinta 90 mg Tablet 90 mg PO BID Qty: 60 RF: 0 aspirin 81 mg Tablet,Delayed Release (Dr/Ec) 81 mg PO QAM Qty: 30 RF: 0 metoprolol succinate 50 mg capsule,sprinkle,ER 24hr 50 mg PO PM Qty: 30 RF: 0 Discharge Orders: Discharge Order (Routine); Ordered 10/06/19 Ordered By: Antony Norwood/Other Patient Handouts: Prediabetes, A1C Admission Data Admit Date/Time: 10/04/19 06:14 Attending Provider: Antony Peters Admit Provider: Bimal Carrillo Primary Care Provider: Chao Hennessy Other Providers: Nicolas Hernandez ; Cliff Orosco ; Jordan Mckeon Other Interventions: Discharge Summary Assessment (RN) Last Done: 10/06/19 10:05 Coding Level of Care Code D/C Day Management >30 mins Diagnoses STEMI (ST elevation myocardial infarction) I21.02 Involved coronary artery: LAD coronary artery Chronic alcohol use Z72.89 Elevated lipase R74.8 Hyperglycemia R73.9 History of weight loss surgery Z98.84 High blood pressure I10 DVT prophylaxis Z29.9 Time Spent (min) 32
--- NOTE | 2019-10-15 12:04 | Coding Query ---
CODING QUERY To promote full compliance with coding requirements relating to patient care, provider participation is requested in all cases of physics teacher uncertainty. Please assist us with the question(s) below: Coding Question(s): Patient admitted with chest pain-successful PTCA with KWAME. Admitted with Lipase of 1,777 , patient with underlying chronic alcohol use. During IP stay Lipase was monitored. Please document a diagnosis/significance of the elevated Lipase. Thanks for your help! - Ricardo Guillen [employer]OMOTIVE WORK[employer] [facility] Physician's Response(s): Patient did not complain of symptoms of pancreatitis. Did not appear patient had acute pancreatitis Principal Diagnosis: "that condition established after study, to be chiefly responsible for occasioning the admission of the patient to the hospital for care." Co-Existing Principal Diagnosis: "when two or more diagnoses equally meet the criteria for principal diagnosis as determined by the circumstances of admission, diagnostic work up, and/or therapy provided, and the Alphabetic Index, Tabular List, or another coding guideline does not provide sequencing direction, any one of the diagnoses may be sequenced first." "When the physician has documented what appears to be a current diagnosis in the body of the record, but has not included the diagnosis in the final diagnostic statement, the physician should be asked whether the diagnosis should be added." (Source Coding [facility] 2 QTR90. p3-4) KENDAL
== END 2019-10-06 14:12 | disposition home or self-care (01) | DRG 247 ==
LOC: ED 04:19 → CC 05:26 → 1E 06:14 → SUATTDRO 06:14 → 2S 10-05 22:41